=== PATIENT | female | born 1985 | race Caucasian/White ===

== ENCOUNTER → 2019-06-04 07:21 | Outpatient (CLI) | payer BC, SELFPAY ==
--- NOTE | 2019-06-04 07:28 | US_ITS ---
US gallbladder HISTORY: ITS.REASON: abdpminal pain ORDERING PHYSICIAN: Gerson Dewey MD PATIENT AGE: 34 years Comparison: None FINDINGS: PANCREAS: Unremarkable. No obvious mass or abnormal fluid collection. No ductal dilatation LIVER: No focal liver lesions demonstrated. Homogeneous echogenicity. No intrahepatic biliary ductal dilatation evident RIGHT KIDNEY: Unremarkable. Normal size and echogenicity. No hydronephrosis GALLBLADDER: The gallbladder contains a small amount sludge. No shadowing stones, gallbladder wall thickening, pericholecystic fluid, or biliary dilatation. Common bile duct is normal at 3 mm. There are small echogenic foci in the gallbladder could represent tiny nonshadowing stones versus small foci of sludge. IMPRESSION: Small amount of gallbladder sludge and possible tiny nonshadowing stones otherwise negative right upper quadrant ultrasound
== END ==
PROVIDERS: PCP Emergency Medicine; Visit Provider Emergency Medicine
DX: R10.9 Unspecified abdominal pain (principal)
CPT/HCPCS: 76705

== ENCOUNTER → 2019-06-22 10:28 | Outpatient (CLI) | payer BC, SELFPAY ==
--- NOTE | 2019-06-22 10:29 | NM_ITS ---
PROCEDURE: NM HEPATOBILIARY W PHARM CLINICAL INDICATION: abn us Abdominal pain, follow up abnormal ultrasound COMPARISON: GB US gallbladder from 06/04/2019 FINDINGS: Dose: 7.91 mCi technetium Choletec. 1.5 mcg of CCK. No pain reported with CCK. There is homogeneous activity within hepatic parenchyma. Gallbladder activity is present by 10 minutes and small bowel activity by 20 minutes. The ejection fraction is low at 19 percent. IMPRESSION: No evidence of common or cystic duct obstruction. Low gallbladder ejection fraction of 19 percent. No pain reported with CCK infusion Dictated by: Grabiel Rodriguez MD 06/22/2019 19:49 Signed by: <Electronically signed by Grabiel Rodriguez MD in [place]> 06/22/2019 19:49
--- NOTE | 2019-06-22 11:11 | HMH.ITSHM ---
Current Home Medications as stated by this patient Francois Chacko or business center representative. []HYDROCHLOROTHIAZIDE BISOPROLOL AMLODIPINE
== END ==
PROVIDERS: PCP Emergency Medicine; Visit Provider Emergency Medicine
DX: K82.8 Other specified diseases of gallbladder (principal)
CPT/HCPCS: 78227; A9537; J2805

== ENCOUNTER → 2019-08-21 13:40 | Outpatient (CLI) | payer BC, SELFPAY ==
[2019-08-21 14:40] LABS: Basophils % 0.3 % (0.1-2.0); Eosinophils # 0.1 K/mm3 (0.0-0.4); Hematocrit 41.7 % (37.0-47.0); Hemoglobin 13.8 g/dL (12.2-16.2); Lymphocytes # 1.9 K/mm3 (0.7-4.5); Lymphocytes % 16.6 % (10-50); Mean Corpuscular Hemoglobin 32.7 pg (27.0-31.2); Mean Platelet Volume 8.5 fl (7.4-10.4); Monocytes # 0.4 K/mm3 (0.1-1.0); Monocytes % 3.5 % (1.7-9.3); Neutrophils # 9.2 K/mm3 (1.8-7.8); Neutrophils % 78.6 % (37.0-80.0); Platelet Count 244 K/mm3 (142-424); Red Blood Count 4.21 M/mm3 (4.20-5.40); Red Cell Distribution Width 13.9 % (11.5-17.5); White Blood Count 11.7 K/mm3 (4.8-10.8)
[2019-08-21 15:18] LABS: Alanine Aminotransferase 45 U/L (12-78); Albumin Level 3.7 gm/dL (3.4-5.0); Albumin/Globulin Ratio 1.3 (1.1-1.8); Alkaline Phosphatase 61 U/L (46-116); Anion Gap 12.8 mEq/L (5-15); Aspartate Amino Transferase 20 U/L (15-37); Bilirubin,Total 0.5 mg/dL (0.2-1.0); Blood Urea Nitrogen 16 mg/dL (7-18); Calcium 8.9 mg/dL (8.5-10.1); Carbon Dioxide 26 mmol/L (21.0-32.0); Chloride 104 mmol/L (98-107); Creatinine,Serum 0.93 mg/dL (0.55-1.02); Estimated Glomerular Filt Rate 69 ml/min (>60); GFR (African American) 83 ML/MIN (>60); Globulin 2.9 gm/dl (1.3-3.2); Glucose 89 mg/dL (74-106); Potassium 3.8 mmoL/L (3.5-5.1); Sodium 139 mmol/L (136-145); Total Protein,Serum 6.6 gm/dL (6.4-8.2)
[2019-08-21 16:50] LABS: HCG Qualitative, Serum Negative (Negative)
== END ==
PROVIDERS: Visit Provider Surgery
DX: Z01.818 Encounter for other preprocedural examination (principal); K82.9 Disease of gallbladder, unspecified
CPT/HCPCS: 36415; 80053; 84703; 85025

== ENCOUNTER → 2020-02-22 07:58 | Outpatient (POV) | payer BC, SELFPAY | PROVIDERS: PCP Emergency Medicine; Visit Provider Specialist | DX: M79.601 Pain in right arm (principal); R20.0 Anesthesia of skin; R20.2 Paresthesia of skin | CPT/HCPCS: 95886; 95908 ==

== ENCOUNTER → 2020-03-18 09:03 | Outpatient (CLI) | payer BC, SELFPAY ==
--- NOTE | 2020-03-18 09:08 | XR_ITS ---
PROCEDURE: XR WRIST RT MIN 3V CLINICAL INDICATION: Rt CTS COMPARISON: No exams were available for comparison FINDINGS: The distal radius and ulna appear intact. The carpal bones are normal. The pronator quadratus fat pad is well seen and normal finding. IMPRESSION: No acute findings. Dictated by: Dr. Damion Knox MD 03/18/2020 09:[address] Damion Knox MD in [place] 03/18/2020 09:26
== END ==
PROVIDERS: PCP Emergency Medicine; Visit Provider Orthopaedic Surgery
DX: G56.01 Carpal tunnel syndrome, right upper limb (principal)
CPT/HCPCS: 73110

== ENCOUNTER → 2020-03-30 08:18 | Outpatient (CLI) | payer BC, SELFPAY ==
--- NOTE | 2020-03-30 08:36 | XR_ITS ---
PROCEDURE: XR CHEST 2V CLINICAL HISTORY: HTN,TOBACCO USE COMPARISON: No exams were available for comparison FINDINGS: The cardiomediastinal silhouette and pulmonary vascularity are within normal limits. The lungs are clear without infiltrates, suspicious nodules, or pleural effusions. No acute bony abnormalities. IMPRESSION: No acute findings. Dictated by: Grabiel Rodriguez MD 03/30/2020 16:26 Electronically signed by Grabiel Rodriguez MD in [place] 03/30/2020 16:26
[2020-03-30 08:49] LABS: Basophils % 0.6 % (0.1-2.0); Eosinophils # 0.1 K/mm3 (0.0-0.4); Eosinophils % 1.9 % (0.1-12.0); Hemoglobin 13.9 g/dL (12.2-16.2); Lymphocytes % 35.9 % (10-50); Mean Corpuscular HGB Conc 34.8 g/dL (31.8-35.4); Mean Corpuscular Hemoglobin 32.5 pg (27.0-31.2); Mean Corpuscular Volume 93.5 fl (81-99); Mean Platelet Volume 7.8 fl (7.4-10.4); Monocytes # 0.3 K/mm3 (0.1-1.0); Monocytes % 5.7 % (1.7-9.3); Neutrophils # 3.2 K/mm3 (1.8-7.8); Platelet Count 307 K/mm3 (142-424); Red Blood Count 4.28 M/mm3 (4.20-5.40); Red Cell Distribution Width 13.7 % (11.5-17.5); White Blood Count 5.7 K/mm3 (4.8-10.8)
[2020-03-30 09:27] LABS: Coronavirus 19 IgG Antibody Negative (Negative); Coronavirus 19 IgM Antibody Negative (Negative)
[2020-03-30 09:52] LABS: Chloride 104 mmol/L (98-107)
[2020-03-30 09:53] LABS: Potassium 4.3 mmoL/L (3.5-5.1); Sodium 138 mmol/L (136-145)
[2020-03-30 09:55] LABS: Alanine Aminotransferase 23 U/L (12-78); Alkaline Phosphatase 64 U/L (38-126); Aspartate Amino Transferase 23 U/L (14-36); Bilirubin,Total 0.6 mg/dl (0.2-1.3); Blood Urea Nitrogen 12 mg/dl (7-17); Estimated Glomerular Filt Rate 82 ml/min (>60); GFR (African American) 99 ML/MIN (>60)
[2020-03-30 09:56] LABS: Albumin Level 3.9 g/dl (3.5-5.0); Albumin/Globulin Ratio 1.6 (1.1-1.8); Anion Gap 8.3 mEq/L (5-15); Calcium 9.2 mg/dl (8.4-10.2); Carbon Dioxide 30 mmol/L (22.0-30.0); Globulin 2.5 g/dL (1.3-3.2); Glucose 93 mg/dl (74-100); Total Protein,Serum 6.4 g/dl (6.3-8.2)
== END ==
PROVIDERS: Visit Provider Orthopaedic Surgery
DX: Z01.818 Encounter for other preprocedural examination (principal); G56.01 Carpal tunnel syndrome, right upper limb
CPT/HCPCS: 36415; 71046; 80053; 85025; 86328

== ENCOUNTER 2020-03-31 10:15 | Day surgery (SDC) | payer BC, SELFPAY ==
--- NOTE | 2020-03-29 09:30 | SUR.PREOP ---
03/29/2020 @ 0930--PHONE CALL MADE TO PATIENT. PATIENT UNDERSTANDS THAT LAB WORK AND COVID TESTING NEEDS TO BE COMPLETED @ 0830 ON 03/30/2020. PATIENT UNDERSTANDS IF LAB WORK AND COVID-19 TESTS ARE NOT COMPLETED BY 12PM ON THAT DATE, THE SURGERY SCHEDULED WILL BE CANCELLED AND RESCHEDULED FOR ANOTHER TIME.
[2020-03-30 10:57] VITALS: BMI 23.3
[2020-03-31 10:35] VITALS: BP 130/85; PULSE 91; RESP 18; TEMP 36.8; O2SAT 98
[2020-03-31 10:37] LABS: Urine Pregnancy, HCG Qual. Negative (Negative)
[2020-03-31 13:39] VITALS: TEMP 43
[2020-03-31 13:40] VITALS: BP 127/67; PULSE 100; RESP 18; TEMP 36.3; O2SAT 95
[2020-03-31 13:55] VITALS: BP 119/73; PULSE 105; RESP 18; TEMP 36.3; O2SAT 96
[2020-03-31 14:10] VITALS: BP 117/70; PULSE 93; RESP 18; TEMP 36.3; O2SAT 97
--- NOTE | 2020-03-31 15:19 | P.PN_ITS ---
[facility] Anesthesia Checklist - Structural Data Admitted From: Home Planned Operative Procedure/s: r carpal tunnel release Consent for Planned Operative Procedure(s) Verified: Yes - Additional verifications Anesthesia Reactions: No Hx Blood Transfusions: No Blood Transfusion Reaction: No - Airway Assessment C-Spine Mobility Assessed: Yes TMJ Mobility Assessed: Yes Dentition: Good Dentition - Neurological Assessment Level of Consciousness: Awake, Alert, Appropriate - Anesthesia Plan Anesthesia Risk discussed: Yes Anesthesia Plan: Verified ASA Class: II Anesthesia Type: MAC w/Block [facility] History I have reviewed the patient's past medical history: Yes Medical History: Reports:: Anxiety, Depression, Hypertension Denies:: Cancer, Diabetes Mellitus Type 1, Diabetes Mellitus Type 2, Internal Pacemaker, MRSA, Seizures *Have you ever received a pneumonia vaccine?: No *Have you received a flu vaccine this season?: Yes Other Medical History: Denies: Blood Transfusion Reaction Anesthesia experience/problems:: none Laterality Cases: Bilateral: Other Other Surgeries: Yes: Cholecystectomy, , Other. No: Pacemaker Amputation: No Fractures: No - *Social History Educational Level: Attended College Smoking Status: Current every day smoker Tobacco Type: cigarettes # Packs/Day (cigarettes): 1 Alcohol Intake: current Alcohol Intake Frequency:: holidays/special occasions only Substance Use Type: denies use *Occupational Status:: employed Housing: house Household Members: spouse, family *Travel in the last 8 weeks: None - Psychiatric History Pschychiatric History:: Reports:: Anxiety, Depression Family Hx:: No significant family history
--- NOTE | 2020-03-31 15:19 | HMH.OPNOTE ---
Date of procedure: 03/31/20 Pre-op Diagnosis:: R carpal tunnel syndrome Post-op Diagnosis:: R carpal tunnel syndrome Procedure performed:: R carpal tunnel release Surgeon:: Jackie Moyer MD Piano Stringer(s):: HOA Mercado CASINO WORKER:: Saul Sewell Anesthesia: MAC, regional Estimated blood loss (mL): 5 Clinical Note:: 34-year-old [id number] female with right hand pain, numbness and tingling present for several months. No history of injury to or surgery on this hand/wrist. Symptoms are worse in the first 3 fingers of the hand, and she has noticed similar symptoms starting on the left. She has tried bracing without help; the symptoms frequently wake her at night. She smokes 1 pack of cigarettes per day and has history of hypertension, but no other medical issues. No history of diabetes or thyroid issues. EMG-NCS confirmed right carpal tunnel syndrome. Given the EMG findings, failure to improve with bracing, and the extent to which the symptoms are distressing for the patient, I recommend surgical treatment for her carpal tunnel syndrome. I discussed the risks of surgical carpal tunnel release, including but not limited to: bleeding, infection, neurovascular damage, wound dehiscence, persistence of symptoms despite surgery, recurrence of CTS and need for revision surgery in the future. The patient vocalized understanding and provided informed consent for the procedure. Operative findings:: median nerve compression at the R wrist Operative note:: The patient was identified in preoperative holding and the R wrist signed by myself. She was then seen by anesthesia and the decision was made to anesthetize the arm using a supraclavicular nerve block. I reviewed the consent with the patient and all questions were answered. Nerve block was performed in preoperative holding by anesthesia and she was then transported to the OR. The patient was placed supine on the operative table with a hand table attached. 1 g of Ancef was infused intravenously and IV sedation administered. Once the patient was sedated, the R arm was prepped and draped from the elbow distally in the usual sterile fashion using chlorhexidine prep. Timeout was performed, identifying the correct patient, correct procedure, and correct site. The procedure was begun by placing the patient's R hand in a lead hand apparatus to hold her hand in the desired position. The desired surgical incision was drawn using anatomic landmarks specifically at the intersection of Kennedy's cardinal line in the radial border of the ring finger, extending proximally to the wrist flexion crease. The right arm was exsanguinated with an Esmarch and the tourniquet inflated to 250mmHg. The procedure was begun by making an incision over the volar aspect of the wrist in a longitudinal fashion following our previously delineated line. A 15 blade was used to incise the skin only. After the skin was incised, a blunt-tipped tenotomy scissors was used to bluntly spread the subcutaneous tissue. Tissue was spread until the transverse carpal ligament was identified. No neurovascular structures were encountered thus far. The transverse carpal ligament was identified and its proximal margin palpated by a [place] elevator. I was able to slip the tip of the free air under the possible edge of the transverse carpal ligament and into the carpal tunnel. Using a fresh 15 blade, I lightly teased to the fibers of the transverse carpal ligament and release them from proximally to distally using the [place] to protect the underlying carpal tunnel contents. I continue to cut down onto the [place] moving distally, until the entire transverse carpal ligament was released. Then, using the blunt tenotomy scissors, push cut around 5 mm of the distal forearm fascia and palpated the distal end of the transverse carpal ligament, confirming that the entire canal had been released. The median nerve was readily identified underlying the ligament and it
== END 2020-03-31 14:12 | disposition home or self-care (01) ==
PROVIDERS: PCP Emergency Medicine; Visit Provider Orthopaedic Surgery
PROC: (CPT 64721; principal; 2020-03-31 12:00)
DX: G56.01 Carpal tunnel syndrome, right upper limb (principal)
CPT/HCPCS: 64721; 81025; 96374

== ENCOUNTER → 2021-08-28 10:13 | Outpatient (CLI) | payer BC, SELFPAY | PROVIDERS: PCP Emergency Medicine; Visit Provider Nurse Practitioner | DX: Z20.822 Contact with and (suspected) exposure to COVID-19 (principal) | CPT/HCPCS: C9803; U0003; U0005 ==

== ENCOUNTER → 2021-09-06 10:23 | Outpatient (CLI) | payer BC, SELFPAY | PROVIDERS: PCP Emergency Medicine; Visit Provider Nurse Practitioner | DX: Z20.822 Contact with and (suspected) exposure to COVID-19 (principal) | CPT/HCPCS: C9803; U0003; U0005 ==

== ENCOUNTER → 2021-11-12 20:24 | Outpatient (CLI) | payer BC, SELFPAY ==
[2021-11-12 20:38] LABS: Coronavirus 19, PCR Not Detected (NotDetected); Influenza A, PCR Not Detected (NotDetected); Influenza B, PCR Not Detected (NotDetected)
== END ==
PROVIDERS: PCP Emergency Medicine; Visit Provider Emergency Medicine
DX: Z20.822 Contact with and (suspected) exposure to COVID-19 (principal); J06.9 Acute upper respiratory infection, unspecified
CPT/HCPCS: C9803; U0003; U0005

== ENCOUNTER 2022-01-25 09:35 | Emergency (ER) | payer BC, SELFPAY ==
[2022-01-25 11:25] VITALS: BP 159/99; PULSE 65; RESP 21; TEMP 36.6; O2SAT 97; BMI 26.5
[2022-01-25 11:38] LABS: UTC Influenza A Antigen Negative (Negative); UTC Influenza B Antigen Negative (Negative)
--- NOTE | 2022-01-25 11:55 | HMH.EDUTC ---
[facility] [place] Clinical Impression: Viral syndrome Disposition: Home, Self-Care Condition on Discharge: Good Instructions: Nausea and Vomiting-Adult, Diarrhea, DI for Headache Additional Instructions: Drink extra fluids with and between meals. If you have difficulty drinking, try very small amounts of water or suck on ice chips. ? Avoid fruit juices, as these do not replace minerals and can actually increase diarrhea. ? Children and adults can use sports drinks to replenish electrolytes. Younger children and infants should use products formulated for children, like oral rehydration solutions. ? Eat food in small amounts and let your stomach recover. ? Get lots of rest. You may feel tired or weak. ? No greasy or fried foods for the next 24-48 hours BRAT diet Bananas Rice Apples and [place] ? Make sure to drink plenty of liquids ? Return if needed ? Straight to ER if any life threatening symptoms ? Zofran as prescribed ? Follow up with family doctor in the next 48-72 hours if no improvement or any worsening of symptoms Prescriptions: Ondansetron [Zofran 4mg ODT] 4 mg PO TIDP PRN #10 tab PRN Reason: Nausea Transmission Status: Pending to [facility] Referrals: Gerson Dewey MD [Primary Care Provider] - As needed Forms: Work/School Release Time of Disposition: 12:30 Medical Decision Making - Kirby Inquiry Pt receiving controlled substance: No Kirby was queried for this patient: No Vital Signs: 01/25/22 11:25 01/25/22 12:11 Temperature 97.8 F 97.8 F Temperature Source Oral Pulse Rate 65 Pulse Rate [Left Brachial] 65 Respiratory Rate 21 21 Blood Pressure 159/99 H Blood Pressure [Left Arm] 159/99 H Blood Pressure Mean [Left Arm] 119 Blood Pressure Source [Left Arm] Automatic Cuff Blood Pressure Position [Left Arm] Sitting 02 Sat by Pulse Oximetry 97 Oxygen Delivery Method Room Air - Lab Data Lab results reviewed: Yes: I reviewed the patient's lab results. Lab Results 01/25/22 11:28: Influenza Type A Ag Negative, Influenza Type B Ag Negative Orders (Tests/Meds): ED MEDICATIONS Discontinued Medications Generic Name Dose Route Start Last Admin Trade Name Freq PRN Reason Stop Dose Admin Ketorolac Tromethamine 60 mg 01/25/22 11:59 01/25/22 12:09 Ketorolac 60mg/2ml Vial IM 01/25/22 12:00 60 mg ONCE ONE Administration Ondansetron HCl 4 mg 01/25/22 11:59 01/25/22 12:09 Ondansetron 4mg Odt SL 01/25/22 12:00 4 mg ONCE ONE Administration Medical Decision Narrative: Patient states that headache and nausea is much improved BP now 148/98 will give her her prescribed BP medication since nausea is improved [facility] [place] HPI - General Stated complaint: vomiting, diarrhea, abd pains, WEBB Time Seen by Provider: 01/25/22 11:55 Mode of Arrival: Ambulatory Source of Information: Patient Limitations: No Limitations Description of Symptoms (Recalled from Triage Doc. by RN): PATIENT C/O VOMITING, DIARRHEA, STOMACH ACHE, HEADACHE, AND BODY ACHES SINCE YESTERDAY MORNING HEENT Symptoms (Recalled from RN notes): Yes Resp Symptoms (Recalled from RN notes): No Skin Symptoms (Recalled from RN notes): No MS Symptoms (Recalled from RN notes): No Functional Status (Recalled from RN notes): WNL - History of Present Illness Provider Complaint: Patient states that she has been feeling achy all over, n/v/d and headache States that she feels like she may have the flu States that she didnt take her morning medications this morning due to feeling sick so she came in to get checked out and will take them when she gets home - Related Data Previous Rx's Medication Instructions Recorded phentermine 37.5 mg tablet 37.5 mg PO DAILY #30 tab 03/21/21 hydrochlorothiazide 25 mg tablet See Rx Instructions .ROUTE 04/20/21 .COMPLEX #30 tab clonazepam 0.5 mg tablet 0.5 mg PO BID #60 tab 09/21/21 amlodipine 10 mg tablet See Rx Instructions .ROUTE 11/02/21 .COMPLEX #90 tab
[2022-01-25 12:11] VITALS: BP 159/99; PULSE 65; RESP 21; TEMP 36.6; O2SAT 97
[2022-01-25 12:26] VITALS: BP 148/98
== END 2022-01-25 12:36 | disposition home or self-care (01) ==
PROVIDERS: Emergency Provider Nurse Practitioner; PCP Emergency Medicine
DX: B34.9 Viral infection, unspecified (principal); I10 Essential (primary) hypertension; F32.A Depression, unspecified; F41.9 Anxiety disorder, unspecified; F17.210 Nicotine dependence, cigarettes, uncomplicated; Z79.899 Other long term (current) drug therapy; Z88.8 Allergy status to other drugs, medicaments and biological substances
CPT/HCPCS: 87804; 96372; 99213; G0463

== ENCOUNTER 2022-01-25 20:08 | Emergency (ER) | payer BC, SELFPAY ==
[2022-01-25 20:30] VITALS: BP 147/91; PULSE 80; O2SAT 97
[2022-01-25 20:38] VITALS: BP 147/91; PULSE 98; RESP 18; TEMP 36.6; O2SAT 99; BMI 26.4
--- NOTE | 2022-01-25 20:47 | CT_ITS ---
PROCEDURE INFORMATION: Exam: CT Abdomen And Pelvis With Contrast Exam date and time: 01/25/2022 9:32 PM Age: 36 years old Clinical indication: Nausea and vomiting; Abdominal pain TECHNIQUE: Imaging protocol: Computed tomography of the abdomen and pelvis with contrast. Radiation optimization: All CT scans at this facility use at least one of these dose optimization techniques: automated exposure control; mA and/or kV adjustment per patient size (includes targeted exams where dose is matched to clinical indication); or iterative reconstruction. Contrast material: ISOVUE; Contrast volume: 75 ml; Contrast route: IV; COMPARISON: ABDPELW CT abdomen pelvis w con 06/02/2019 11:05 PM FINDINGS: Liver: Hypoattenuating hepatic lesions which are too small to characterize. Gallbladder and bile ducts: Gallbladder is not visualized. Pancreas: Normal enhancement. No ductal dilation. Spleen: No splenomegaly. Adrenal glands: No mass. Kidneys and ureters: No hydronephrosis. Stomach and bowel: No obstruction. No mucosal thickening. Appendix: No evidence of appendicitis. Intraperitoneal space: No free air. No significant fluid collection. Vasculature: No abdominal aortic aneurysm. Lymph nodes: No enlarged lymph nodes. Urinary bladder: No acute abnormality. Reproductive: Ovarian follicles. Bones/joints: Mild scoliosis. No fracture. Soft tissues: No soft tissue swelling. IMPRESSION: No acute findings.
--- NOTE | 2022-01-25 20:49 | HMH.EDNVD ---
ED Disposition Clinical Impression: Gastroenteritis Disposition: Home, Self-Care Condition on Discharge: Good Instructions: DI for Diarrhea and Traveler's Diarrhea -- Adult Additional Instructions: fluids and see pcp for follow up Referrals: Gerson Dewey MD [Primary Care Provider] - - Critical Care Critical Care Time: No Attestation: On 01/25/22, the high probability of a clinically significant, sudden or life threatening deterioration of the following system(s) required my full and direct attention, intervention and personal management. The time I documented below is in addition to time spent performing reported procedures but includes the following listed in this critical care notation. Medical Decision Making - Medical Records Medical records reviewed: Yes: I reviewed the patient's medical records. - Kirby Inquiry Pt receiving controlled substance: No Vital Signs: 01/25/22 20:30 01/25/22 20:38 01/25/22 21:00 Temperature 97.8 F Temperature Source Oral Pulse Rate 80 77 Pulse Rate [Apical] 98 H Respiratory Rate 18 Blood Pressure 147/91 H 146/90 H Blood Pressure [Right Arm] 147/91 H Blood Pressure Mean [Right Arm] 109 Blood Pressure Source [Right Arm] Automatic Cuff Blood Pressure Position [Right Arm] Sitting 02 Sat by Pulse Oximetry 97 99 99 Oxygen Delivery Method Room Air Room Air Room Air 01/25/22 21:30 01/25/22 22:00 01/25/22 22:30 Temperature Temperature Source Pulse Rate 73 69 70 Pulse Rate [Apical] Respiratory Rate Blood Pressure 128/87 109/68 L 103/65 L Blood Pressure [Right Arm] Blood Pressure Mean [Right Arm] Blood Pressure Source [Right Arm] Blood Pressure Position [Right Arm] 02 Sat by Pulse Oximetry 97 97 98 Oxygen Delivery Method Room Air Room Air Room Air - Lab Data Lab results reviewed: Yes: I reviewed the patient's lab results. Lab Results 01/25/22 20:38: Amylase 88, Lipase 117 01/25/22 20:38: WBC 5.7, RBC 4.67, Hgb 15.1, Hct 44.2, MCV 94.6, MCH 32.2 H, MCHC 34.1, RDW 13.8, Plt Count 275, MPV 8.9, Neut % (Auto) 59.9, Lymph % (Auto) 27.9, Jack % (Auto) 7.8, Eos % (Auto) 2.5, Baso % (Auto) 1.8, Neut # (Auto) 3.4, Lymph # (Auto) 1.6, Jack # (Auto) 0.5, Eos # (Auto) 0.2, Baso # (Auto) 0.1 01/25/22 20:38: Sodium 137, Potassium 4.0, Chloride 107, Carbon Dioxide 25, Anion Gap 9.0, BUN 8, Creatinine 0.70, Estimated Creat Clear 129, Estimated GFR 94, Est GFR ( Amer) 114, Glucose 95, Calcium 8.5, Total Bilirubin 0.6, AST 36, ALT 49, Alkaline Phosphatase 73, Total Protein 6.8, Albumin 4.2, Globulin 2.6, Albumin/Globulin Ratio 1.6 01/25/22 20:38: Serum HCG, Qual Negative Result diagrams: 01/25/22 20:38 01/25/22 20:38 Orders (Tests/Meds): ED MEDICATIONS Generic Name Dose Route Start Last Admin Trade Name Freq PRN Reason Stop Dose Admin Lactated Ringer's 500 mls @ 999 mls/hr 01/25/22 21:00 01/25/22 21:26 Lactated Ringer's 1000 Ml Bag IV 01/25/22 21:30 Not Given .Q31M ROSANNA Lactated Ringer's 1,000 mls @ 999 mls/hr 01/25/22 21:30 01/25/22 21:27 Lactated Ringer's 1000 Ml Bag IV 01/25/22 22:30 999 mls/hr .Q1H1M ROSANNA Administration Lactated Ringer's 1,000 mls @ 999 mls/hr 01/25/22 22:15 01/25/22 22:26 Lactated Ringer's 1000 Ml Bag IV 01/25/22 23:15 999 mls/hr .Q1H1M ROSANNA Administration Sodium Chloride 8 ml 01/25/22 20:47 Sodium Chloride 0.9% 10ml Vial IV 02/24/22 20:46 NEEDED PRN dilute pepcid Discontinued Medications Generic Name Dose Route Start Last Admin Trade Name Freq PRN Reason Stop Dose Admin Famotidine 20 mg 01/25/22 20:47 01/25/22 20:56 Famotidine 20mg/2ml Vial IV 01/25/22 20:48 20 mg ONCE ONE Administration Iopamidol 75 ml 01/25/22 21:38 01/25/22 21:39 Iopamidol-370 (76%);100ml Bottle IV 01/25/22 21:39 75 ml ONCE ONE Administration Ketorolac Tromethamine 30 mg 01/25/22 20:50 01/25/22 20:56 Ketorolac 30mg/Ml Vial IV 01/25/22 20
[2022-01-25 20:56] LABS: Basophils # 0.1 K/mm3 (0-0.2); Basophils % 1.8 % (0.1-2.0); Eosinophils # 0.2 K/mm3 (0.0-0.4); Eosinophils % 2.5 % (0.1-12.0); Hematocrit 44.2 % (37.0-47.0); Hemoglobin 15.1 g/dL (12.2-16.2); Lymphocytes # 1.6 K/mm3 (0.7-4.5); Lymphocytes % 27.9 % (10-50); Mean Corpuscular HGB Conc 34.1 g/dL (31.8-35.4); Mean Corpuscular Hemoglobin 32.2 pg (27.0-31.2); Mean Corpuscular Volume 94.6 fl (81-99); Mean Platelet Volume 8.9 fl (7.4-10.4); Monocytes # 0.5 K/mm3 (0.1-1.0); Monocytes % 7.8 % (1.7-9.3); Neutrophils # 3.4 K/mm3 (1.8-7.8); Neutrophils % 59.9 % (37.0-80.0); Platelet Count 275 K/mm3 (142-424); Red Blood Count 4.67 M/mm3 (4.20-5.40); Red Cell Distribution Width 13.8 % (11.5-17.5); White Blood Count 5.7 K/mm3 (4.8-10.8)
[2022-01-25 20:59] LABS: Chloride 107 mmol/L (98-107); Sodium 137 mmol/L (136-145)
[2022-01-25 21:00] VITALS: BP 146/90; PULSE 77; O2SAT 99
[2022-01-25 21:01] LABS: Amylase 88 U/L (30-110); Lipase 117 U/L (23-300)
[2022-01-25 21:02] LABS: Alanine Aminotransferase 49 U/L (12-78); Albumin Level 4.2 g/dl (3.5-5.0); Albumin/Globulin Ratio 1.6 (1.1-1.8); Alkaline Phosphatase 73 U/L (38-126); Aspartate Amino Transferase 36 U/L (14-36); Bilirubin,Total 0.6 mg/dl (0.2-1.3); Blood Urea Nitrogen 8 mg/dl (7-17); Calcium 8.5 mg/dl (8.4-10.2); Carbon Dioxide 25 mmol/L (22.0-30.0); Creatinine Clearance Estimated 129 mL/min (50-200); Estimated Glomerular Filt Rate 94 ml/min (>60); GFR (African American) 114 ML/MIN (>60); Globulin 2.6 g/dL (1.3-3.2); Glucose 95 mg/dl (74-100); Total Protein,Serum 6.8 g/dl (6.3-8.2)
[2022-01-25 21:20] LABS: HCG Qualitative, Serum Negative (Negative)
[2022-01-25 21:30] VITALS: BP 128/87; PULSE 73; O2SAT 97
[2022-01-25 22:00] VITALS: BP 109/68; PULSE 69; O2SAT 97
[2022-01-25 22:30] VITALS: BP 103/65; PULSE 70; O2SAT 98
[2022-01-26 00:15] VITALS: BP 115/62; PULSE 72; RESP 18; TEMP 36.7; O2SAT 97
== END 2022-01-26 00:25 | disposition home or self-care (01) ==
PROVIDERS: Emergency Provider Emergency Medicine; PCP Emergency Medicine
DX: R19.7 Diarrhea, unspecified (principal); R11.2 Nausea with vomiting, unspecified; I10 Essential (primary) hypertension; F32.A Depression, unspecified; F41.9 Anxiety disorder, unspecified; F17.210 Nicotine dependence, cigarettes, uncomplicated; Z88.8 Allergy status to other drugs, medicaments and biological substances
CPT/HCPCS: 74177; 80053; 82150; 83690; 84703; 85025; 96361; 96365; 96366; 96374; 96375; 99284; J2405; Q9967

== ENCOUNTER 2023-12-18 10:43 | Emergency (ER) | payer BC, SELFPAY ==
[2023-12-18 11:00] VITALS: BP 134/86; PULSE 101; RESP 17; TEMP 37.7; O2SAT 100; BMI 26.1
--- NOTE | 2023-12-18 11:17 | ED_ITS ---
Discharge Plan Disposition Patient Disposition: Home, Self-Care Condition: Good Prescriptions Prescriptions: New benzonatate [benzonatate] 100 mg capsule 100 mg PO TIDP PRN (Reason: Cough) Qty: 30 0RF ibuprofen [ibuprofen] 600 mg tablet 600 mg PO Q6HP PRN (Reason: Mild Pain) Qty: 30 0RF ondansetron 4 mg Tablet,Disintegrating 4 mg PO Q8H PRN (Reason: Nausea) Qty: 12 0RF No Action phentermine [Adipex-P] 37.5 mg tablet 37.5 mg PO DAILY Qty: 30 0RF Rx Instructions: must administer 30 minutes before or 1-2 hours after breakfast hydrochlorothiazide 25 mg tablet See Rx Instructions .ROUTE .COMPLEX Qty: 30 0RF Dose Instruction: TAKE ONE TABLET BY MOUTH ONCE A DAY FOR HIGH BLOOD PRESSURE Rx Instructions: TAKE ONE TABLET BY MOUTH ONCE A DAY FOR HIGH BLOOD PRESSURE clonazepam [Klonopin] 0.5 mg tablet 0.5 mg PO BID Qty: 60 2RF vilazodone 20 mg tablet See Rx Instructions .ROUTE .COMPLEX Qty: 20 0RF Dose Instruction: TAKE ONE TABLET BY MOUTH ONCE A DAY WITH FOOD Rx Instructions: TAKE ONE TABLET BY MOUTH ONCE A DAY WITH FOOD amlodipine 10 mg tablet See Rx Instructions .ROUTE .COMPLEX Qty: 21 0RF Dose Instruction: TAKE ONE TABLET BY MOUTH ONCE A DAY FOR BLOOD PRESSURE Rx Instructions: TAKE ONE TABLET BY MOUTH ONCE A DAY FOR BLOOD PRESSURE Referrals Follow up/Referrals: Shane Ovalle DO [Primary Care Provider] - See instructions Activity Restrictions/Add. Instructions Additional Instructions/Restrictions: Drink plenty of fluids. Take tylenol or ibuprofen for pain or fever. Take the medications as directed. Follow up with your regular doctor. GO TO THE ER FOR ANY WORSENING SYMPTOMS Clinical Impressions Clinical Impression: Acute viral syndrome Instructions Patient Instructions: DI for Viral Syndrome, Ondansetron, Ibuprofen, Benzonatate Discharge ED Provider: Primo Dupont [facility] General Stated complaint: sore throat fever Time Seen by Provider: 12/18/23 11:17 History of Present Illness Provider Complaint: She states that for the past 2 days she has had low grade fever, chills, body aches, malaise, scratchy sore throat, dry nonproductive cough, and nausea. She has been exposed to influenza. Related Data Previous Rx's Medication Instructions Recorded phentermine 37.5 mg tablet 37.5 mg PO DAILY #30 tabs 03/21/21 (Adipex-P) hydrochlorothiazide 25 mg tablet See Rx Instructions .Route 04/20/21 .COMPLEX #30 tabs clonazepam 0.5 mg tablet (Klonopin) 0.5 mg PO BID #60 tabs 09/21/21 amlodipine 10 mg tablet See Rx Instructions .Route 08/23/23 .COMPLEX #21 tabs vilazodone 20 mg tablet See Rx Instructions .Route 08/23/23 .COMPLEX #20 tabs benzonatate 100 mg capsule 100 mg PO TIDP PRN Cough #30 caps 12/18/23 ibuprofen 600 mg tablet 600 mg PO Q6HP PRN Mild Pain #30 12/18/23 tabs ondansetron 4 mg disintegrating 4 mg PO Q8H PRN Nausea #12 tabs 12/18/23 tablet Allergies Allergy/AdvReac Type Severity Reaction Status Date / Time lisinopril AdvReac Mild Cough Verified 12/18/23 11:21 [facility] Disclaimer: The information contained in this section may have been updated after the patient was seen, as this information can be updated by other users. Social History Smoking Status: Current every day smoker tobacco type: cigarettes packs per day: 1 second hand exposure: Yes alcohol intake: never substance use type: denies use current occupational status: other Travel in the last 8 weeks: None household members: spouse and family housing: house current occupation: [employer] Employee current occupational exposures/hazards: No caffeine: Yes ROS Obtained: Yes All systems reviewed & no additional complaints except as documented Constitutional Constitutional: Reports chills and Reports fever(s) Eyes Eyes: Denies eye discharge ENT Ears, Nose, Mouth, and Throat: Reports as per HPI Cardiovascular Cardiovascular: Denies chest pain Respiratory Respiratory: Denies chest congestion and Reports cough Gastrointestinal Gastrointestingal: Reports nausea; Denies abdominal pain, constipation, cramping, diarrhea or vomiting Musculoskeletal Musculoskeletal: Denies arthralgias Integumentary/Breasts Skin/Breast: Denies rash Neurologic Neurologic: Denies paresthesias Physical Exam General General appearance: alert and in no apparent distress Head Head exam: atraumatic, normocephalic and normal inspection Eye Eye exam: Present normal appearance, PERRL and EOMI ENT ENT exam: Present normal exam, normal oropharynx, mucous membranes moist, TM's normal bilaterally and normal external ear exam Neck Neck exam: Present normal inspection, full ROM and trachea midline; Absent meningismus or lymphadenopathy Chest Chest inspection: Present normal inspection and symmetric chest wall rise; Absent tenderness Respiratory Respiratory exam: Present normal lung sounds bilaterally; Absent respiratory distress Cardiovascular Cardiovascular exam: Present regular rate and normal rhythm; Absent JVD Abdominal Exam Abdominal exam: Present soft and normal bowel sounds; Absent distention, tenderness or guarding Extremities Exam Extremities exam: Present normal inspection, full ROM and normal capillary refill; Absent calf tenderness Back Exam Back exam: Present normal inspection; Absent tenderness Neurological Exam Neurological exam: Present alert and oriented X3 Psychiatric Psychiatric exam: Present normal affect and normal mood Skin Skin exam: Present warm, dry, intact and normal color Lymphatic Lymphatic Findings: no adenopathy Medical Decision Making Medical Records Medical records reviewed: No I reviewed the patient's medical records. Kirby Inquiry Pt receiving controlled substance: No Lab Data Lab results reviewed: Yes I reviewed the patient's lab results.
[2023-12-18 11:28] LABS: UTC Influenza A Antigen Negative (Negative); UTC Influenza B Antigen Negative (Negative)
[2023-12-18 11:54] VITALS: BP 134/86; PULSE 17; RESP 17; TEMP 37.7; O2SAT 100
== END 2023-12-18 11:54 | disposition home or self-care (01) ==
PROVIDERS: Emergency Provider Nurse Practitioner Family; PCP Internal Medicine
DX: R05.9 Cough, unspecified (principal); R11.0 Nausea; R50.9 Fever, unspecified; R07.0 Pain in throat; B34.9 Viral infection, unspecified; F17.210 Nicotine dependence, cigarettes, uncomplicated
CPT/HCPCS: 87804; 99212; 99214; G0463

== ENCOUNTER 2024-04-13 10:19 | Outpatient (CLI) | payer BC, SELFPAY ==
[2024-04-13 18:40] LABS: Basophils # 0.1 K/mm3 (0-0.2); Eosinophils # 0.1 K/mm3 (0.0-0.4); Eosinophils % 1.9 % (0.1-12.0); Hematocrit 43.6 % (37.0-47.0); Hemoglobin 14.2 g/dL (12.2-16.2); Lymphocytes # 1.5 K/mm3 (0.7-4.5); Lymphocytes % 33.5 % (10-50); Mean Corpuscular HGB Conc 32.6 g/dL (31.8-35.4); Mean Corpuscular Hemoglobin 31.3 pg (27.0-31.2); Mean Platelet Volume 10.2 fl (7.4-10.4); Monocytes # 0.3 K/mm3 (0.1-1.0); Monocytes % 6.6 % (1.7-9.3); Neutrophils # 2.6 K/mm3 (1.8-7.8); Platelet Count 260 K/mm3 (142-424); Red Blood Count 4.54 M/mm3 (4.20-5.40); Red Cell Distribution Width 14.6 % (11.5-17.5); White Blood Count 4.6 K/mm3 (4.8-10.8)
[2024-04-13 19:15] LABS: Alanine Aminotransferase 39 U/L (12-78); Albumin Level 4.3 g/dl (3.5-5.0); Albumin/Globulin Ratio 1.8 (1.1-1.8); Alkaline Phosphatase 57 U/L (38-126); Anion Gap 16.6 mEq/L (5-15); Aspartate Amino Transferase 29 U/L (14-36); Bilirubin,Total 0.6 mg/dl (0.2-1.3); Blood Urea Nitrogen 7 mg/dl (7-17); Calcium 9.5 mg/dl (8.4-10.2); Carbon Dioxide 22 mmol/L (22.0-30.0); Chloride 105 mmol/L (98-107); Chol/HDL Ratio 4.3 (1-3.5); Cholesterol 180 mg/dl (140-200); Estimated Glomerular Filt Rate 80 ml/min (>60); GFR (African American) 97 ML/MIN (>60); Globulin 2.4 g/dL (1.3-3.2); Glucose 89 mg/dl (74-100); HDL Cholesterol 42 mg/dl (40-60); Potassium 4.6 mmoL/L (3.5-5.1); Sodium 139 mmol/L (136-145); Total Protein,Serum 6.7 g/dl (6.3-8.2); Triglycerides 149 mg/dl (30-150); VLDL Cholesterol 30 mg/dL (0-40)
[2024-04-13 19:27] LABS: Direct LDL Cholesterol 102.18 mg/dL (100-129)
[2024-04-13 19:39] LABS: Free Thyroxine Index 1.7 ug/dL (5.93-13.13); T4 (Thyroxine) 4.8 ug/dl (5.53-11.0); Triiodothryronine (T3) Uptake 35 % (23.5-40.5)
[2024-04-13 19:40] LABS: 25-OH Vitamin D, Total 29.8 ng/mL (30-100)
[2024-04-13 19:53] LABS: Thyroid Stimulating Hormone 1.51 uIU/mL (0.465-4.68)
[2024-04-14 11:47] LABS: HIV (1&2) Antibody Rapid NON REACTIVE
[2024-04-15 07:06] LABS: HBsAg Screen Negative (Negative); HCV Ab Non Reactive (Non Reactive); Hep A Ab, IGM Negative (Negative); Hep B Core Ab, IgM Negative (Negative)
[2024-04-15 09:42] LABS: Thyroid Peroxidase Antibodies 9 IU/mL (0-34)
[2024-04-17 07:19] LABS: Thyroid Stimulating Immunoglob <0.10 IU/L (0.00-0.55)
== END 2024-04-13 23:59 | disposition home or self-care (01) ==
LOC: LAB.DROPOF 04-14 10:19
PROVIDERS: PCP Physician Assistant; Visit Provider Physician Assistant
DX: R53.83 Other fatigue (principal); L65.9 Nonscarring hair loss, unspecified; I10 Essential (primary) hypertension; F17.210 Nicotine dependence, cigarettes, uncomplicated; Z68.25 Body mass index [BMI] 25.0-25.9, adult
CPT/HCPCS: 80050; 80053; 80061; 80074; 82306; 84436; 84443; 84445; 84479; 85025; 86376

== ENCOUNTER 2024-09-05 12:16 | Emergency (ER) | payer BC, SELFPAY ==
[2024-09-05 13:35] VITALS: BP 146/90; PULSE 80; RESP 18; TEMP 36.8; O2SAT 98; BMI 28.2
--- NOTE | 2024-09-05 14:42 | ED_ITS ---
Discharge Plan Disposition Patient Disposition: Home, Self-Care Condition: Good Prescriptions Prescriptions: New amoxicillin 875 mg tablet 875 mg PO BID 10 Days Qty: 20 0RF No Action Wegovy 0.25 mg/0.5 mL pen injector 0.25 mg SQ WEEKLY Qty: 2 0RF Rx Instructions: administer weeks 1 through 4 of therapy levothyroxine 25 mcg tablet See Rx Instructions .ROUTE .COMPLEX Qty: 30 0RF Dose Instruction: TAKE ONE TABLET BY MOUTH ONCE A DAY Rx Instructions: TAKE ONE TABLET BY MOUTH ONCE A DAY vilazodone 20 mg tablet See Rx Instructions .ROUTE .COMPLEX Qty: 30 0RF Dose Instruction: TAKE ONE TABLET BY MOUTH ONCE A DAY WITH FOOD Rx Instructions: TAKE ONE TABLET BY MOUTH ONCE A DAY WITH FOOD Referrals Follow up/Referrals: Nubia Toribio PA [Primary Care Provider] - See instructions Activity Restrictions/Add. Instructions Additional Instructions/Restrictions: Take medication as prescribed. Increase fluids and rest. Follow up with PCP if symptoms persist or worsen. Clinical Impressions Clinical Impression: Acute lower respiratory infection Instructions Patient Instructions: Acute Bronchitis Print Language Print Language: Peruvian Discharge ED Provider: Patricia Proctor [facility] General Stated complaint: cough, chest sarah. Mode of Arrival: Ambulatory Source of Information: Patient Time Seen by Provider: 09/05/24 14:36 Description of Symptoms (Recalled from Triage Doc. by RN): CONSTANT COUGHING WITH YELLOW/GREEN DRAINAGE, CHEST CONGESTION. COUGHING WORSE AT NIGHT, UNABLE TO SLEEP HEENT Symptoms (Recalled from RN notes): No Resp Symptoms (Recalled from RN notes): Yes Skin Symptoms (Recalled from RN notes): No MS Symptoms (Recalled from RN notes): No Functional Status (Recalled from RN notes): WNL History of Present Illness Provider Complaint: CONSTANT COUGHING WITH YELLOW/GREEN DRAINAGE, CHEST CONGESTION. COUGHING WORSE AT NIGHT, UNABLE TO SLEEP Related Data Previous Rx's ?Medication ?Instructions ?Recorded semaglutide (weight loss) 0.25 0.25 mg (0.5 mL) SQ WEEKLY #2 mL 07/09/24 mg/0.5 mL subcutaneous pen injector (Wegovy) levothyroxine 25 mcg tablet See Rx Instructions .Route 07/27/24 .COMPLEX #30 tabs vilazodone 20 mg tablet See Rx Instructions .Route 07/27/24 .COMPLEX #30 tabs amoxicillin 875 mg tablet 875 mg PO BID 10 days #20 tabs 09/05/24 Allergies Allergy/AdvReac Type Severity Reaction Status Date / Time lisinopril AdvReac Mild Cough Verified 07/09/24 11:33 Worker's Comp Is this a Worker's Comp case?: No [facility] Disclaimer: The information contained in this section may have been updated after the patient was seen, as this information can be updated by other users. Social History Smoking Status: Current every day smoker tobacco type: cigarettes packs per day: 1 second hand exposure: Yes alcohol intake: never substance use type: denies use current occupational status: other Travel in the last 8 weeks: None household members: spouse and family housing: house current occupation: [employer] Employee current occupational exposures/hazards: No caffeine: Yes ROS Obtained: Yes All systems reviewed & no additional complaints except as documented Constitutional Constitutional: Reports system reviewed and no additional complaints, except as documented and Reports malaise Eyes Eyes: Reports system reviewed and no additional complaints, except as documented ENT Ears, Nose, Mouth, and Throat: Reports system reviewed and no additional complaints, except as documented Cardiovascular Cardiovascular: Reports system reviewed and no additional complaints, except as documented Respiratory Respiratory: Reports system reviewed and no additional complaints, except as documented, Reports change in phlegm color, Reports chest congestion and Reports cough with sputum production Gastrointestinal Gastrointestingal: Reports system reviewed and no additional complaints, except as documented Genitourinary Female Genitourinary: Reports system reviewed and no additional complaints, except as documented Musculoskeletal Musculoskeletal: Reports system reviewed and no additional complaints, except as documented Integumentary/Breasts Skin/Breast: Reports system reviewed and no additional complaints, except as documented Neurologic Neurologic: Reports system reviewed and no additional complaints, except as documented Endocrine Endocrine: Reports system reviewed and no additional complaints, except as documented Hematologic/Lymphatic Henatologic/Lymphatic: Reports system reviewed and no additional complaints, except as documented Allergic/Immunologic Allergic/Immunologic: Reports system reviewed and no additional complaints, except as documented Physical Exam General General appearance: alert and in no apparent distress Head Head exam: atraumatic and normocephalic Eye Eye exam: Present normal appearance ENT ENT exam: Present normal exam, normal oropharynx and mucous membranes moist Neck Neck exam: Present normal inspection Chest Chest inspection: Present normal inspection and symmetric chest wall rise Respiratory Respiratory exam: Present other (course sounds throughout) Cardiovascular Cardiovascular exam: Present regular rate and normal rhythm Abdominal Exam Abdominal exam: Present soft Extremities Exam Extremities exam: Present normal inspection Back Exam Back exam: Present normal inspection Neurological Exam Neurological exam: Present alert and oriented X3 Psychiatric Psychiatric exam: Present normal affect and normal mood Skin Skin exam: Present warm, dry and intact Lymphatic Lymphatic Findings: no adenopathy Medical Decision Making Medical Records Screening: Per USPSTF and CDC recommendations, given the prevalence of disease in our region, it is our hospital?s policy to screen for HIV and viral Hepatitis for all patients aged 18 and over and those with ongoing risk factors. Kirby Inquiry Pt receiving controlled substance: No Kirby was queried for this patient: No Vital Signs: 09/05/24 13:35 Temperature 98.2 F Temperature Source Oral Pulse Rate [Left Radial] 80 Respiratory Rate 18 Blood Pressure [Left Arm] 146/90 H Blood Pressure Mean [Left Arm] 108 02 Sat by Pulse Oximetry 98
[2024-09-05 14:53] VITALS: BP 146/90; PULSE 80; RESP 18; TEMP 36.8
== END 2024-09-05 14:56 | disposition home or self-care (01) ==
PROVIDERS: Emergency Provider Nurse Practitioner Family; PCP Physician Assistant
DX: J06.9 Acute upper respiratory infection, unspecified (principal)
CPT/HCPCS: 99213; G0381

== ENCOUNTER 2024-09-21 14:17 | Outpatient (CLI) | payer BC, SELFPAY ==
--- NOTE | 2024-09-21 14:21 | MM_ITS ---
PROCEDURE INFORMATION: Exam: MG Bilateral Screening 3D Mammography Exam date and time: 09/21/2024 2:18 PM Age: 39 years old Clinical indication: Screening examination TECHNIQUE: Imaging protocol: Bilateral Screening tomosynthesis and 2D mammography including computer-aided detection (CAD) when performed. COMPARISON: No relevant prior studies available. FINDINGS: MAMMOGRAPHY: Breast composition: The breasts are heterogeneously dense, which may obscure small masses. Mass: 1.5 cm mass subareolar left breast. Question 0.6 cm mass right breast roughly 3 o'clock 4 cm from the nipple middle depth. Architectural distortion: None. Calcifications: No suspicious calcifications. Asymmetric density: None. Skin thickening: None. Axillary adenopathy: None. IMPRESSION: 1. Left breast mass. Recommend further evaluation with left breast ultrasound. 2. Questioned right breast mass.Recommend right breast diagnostic mammogram including spot compression views of the right breast in the CC and MLO projections, a full 90 degree lateral view, and right breast ultrasound for further evaluation. ASSESSMENT: BI-RADS Category 0: Incomplete- Need Additional Imaging Evaluation.
== END 2024-09-21 23:59 | disposition home or self-care (01) ==
LOC: RAD 14:18
PROVIDERS: PCP Physician Assistant; Visit Provider Physician Assistant
DX: Z12.31 Encounter for screening mammogram for malignant neoplasm of breast (principal)
CPT/HCPCS: 77063; 77067

== ENCOUNTER 2024-10-16 12:47 | Outpatient (CLI) | payer BC, SELFPAY ==
--- NOTE | 2024-10-16 12:54 | MM_ITS ---
PROCEDURE INFORMATION: Exam: US Right Breast, Complete US Left Breast, Complete MG Right Diagnostic Breast Tomosynthesis Exam date and time: 10/16/2024 12:50 PM Age: 39 years old Clinical indication: Patient recalled on the basis of a screening mammogram for further evaluation; bilateral breast masses TECHNIQUE: Imaging protocol: Complete ultrasound of all four quadrants of the right breast and the retroareolar regions, including ultrasound of the axilla when performed. Complete ultrasound of all four quadrants of the left breast and the retroareolar regions, including ultrasound of the axilla when performed. Right Diagnostic tomosynthesis and 2D mammography including computer-aided detection (CAD) when performed. Unilateral or bilateral exam. COMPARISON: MG MM DIG SCREENING MAMM BI W/CAD 09/21/2024 2:18 PM FINDINGS: MAMMOGRAPHY: Breast composition: The breast is heterogeneouly dense, which may obscure small masses (based on the most recent screening mammogram report). Breast mammogram findings: Digital diagnostic spot compression views of the right breast and 90 degree lateral view of the right breast demonstrate normal overlapping fibroglandular structures without persistent mass or asymmetry identified. ULTRASOUND: Breast ultrasound findings: Sonographic images of the right breast including the retroareolar region, all 4 quadrants and the axilla do not demonstrate any solid masses. Incidental 9 o'clock axis 0.5 cm cyst 6 cm from the nipple. No architectural distortion or acoustical shadowing. No skin thickening or axillary adenopathy. Sonographic images of the left breast including the retroareolar region, all 4 quadrants and the axilla demonstrates a fairly well-circumscribed hypoechoic solid mass in the left retroareolar region most closely corresponds to the mass on mammography. It measures 1.6 x 0.9 x 1.2 cm. There is heterogeneous internal architecture. Sonographic images of left 2 o'clock axis 5 cm from nipple demonstrates a smoothly marginated ovoid hypoechoic solid mass measuring 0.8 x 0.3 x 0.6 cm, not well seen on mammography. The finding is probably benign in etiology.. No architectural distortion or acoustical shadowing. No skin thickening or axillary adenopathy. IMPRESSION: 1. Indeterminate left retroareolar mass. Ultrasound-guided core biopsy is recommended for further evaluation. If the biopsy is benign, a six-month follow-up targeted left upper outer quadrant ultrasound is recommended to ensure stability of the smaller incidentally noted mass on sonography. 2. No focal suspicious findings in the right breast. ASSESSMENT: BI-RADS Category 4: Suspicious.
== END 2024-10-16 23:59 | disposition home or self-care (01) ==
LOC: RAD 12:48
PROVIDERS: PCP Physician Assistant; Visit Provider Physician Assistant
DX: R92.8 Other abnormal and inconclusive findings on diagnostic imaging of breast (principal)
CPT/HCPCS: 76641; 77061; 77065; G0279

== ENCOUNTER 2024-11-02 09:20 | Outpatient (CLI) | payer BC, SELFPAY ==
--- NOTE | 2024-11-02 | MM_ITS ---
FINAL REPORT CLINICAL HISTORY: s/p bx, lt breast clip placement FINDINGS: MAMMOGRAM LEFT 2D TECHNIQUE: Standard digital 2D views COMPARISON: None DENSITY: There are scattered areas of fibroglandular density FINDINGS: Post biopsy marker clip is noted in satisfactory position. Postbiopsy changes are noted. Mass in the retroareolar left breast is seen containing the biopsy marker clip. IMPRESSION: Biopsy marker clip in good position ASSESSMENT: Post procedure mammogram for marker placement RECOMMENDATION: Based on pathology findings of fibroadenoma 6-month sonographic follow-up was recommended as part of normal post benign biopsy surveillance. Authenticated and [facility]N
--- NOTE | 2024-11-02 09:27 | US_ITS ---
FINAL REPORT CLINICAL HISTORY: LUMP IN LEFT BREAST - DR. ANGEL JUSTIN - RETROAREOLAR FINDINGS: ULTRASOUND-GUIDED LEFT BREAST CORE BIOPSY HISTORY: Left breast mass TECHNIQUE: The left breast was prepped in a routine sterile fashion and locally anesthetized with 1% lidocaine. Using sonographic guidance a 15 gauge needle was directed toward the lesion of interest. The needle was positioned within the outer periphery of the lesion. A total of 4 passes were made with a 16 gauge core biopsy needle. A biopsy marker clip was deployed in satisfactory position. A post biopsy mammogram was performed and dictated separately. Limited postbiopsy images showed no evidence of significant hemorrhage. Procedure was well tolerated. IMPRESSION: 1. Technically successful image guided biopsy of left breast lesion as above. Histopathology results reveal fibroadenoma. Pathology is concordant with mammographic findings. Recommend 6-month sonographic follow-up as routine post benign biopsy surveillance Authenticated and ERN
== END 2024-11-02 23:59 | disposition home or self-care (01) ==
LOC: RAD 09:21
PROVIDERS: PCP Physician Assistant; Visit Provider Physician Assistant
DX: N63.42 Unspecified lump in left breast, subareolar (principal)
CPT/HCPCS: 19083; 77065

== ENCOUNTER 2024-12-25 14:51 | Outpatient (CLI) | payer BC, SELFPAY ==
[2024-12-25] MEDS: ALBUTEROL 0.083% 2.5 MG/3 ML NEB IH (15:29)
--- NOTE | 2024-12-25 15:29 | PC.NURSE ---
PFT completed on pt without incident. Albuterol 0.083% given via [facility]N, per written protocol, Pt tolerated tx well.
--- NOTE | 2024-12-25 15:55 | XR_ITS ---
FINAL REPORT CLINICAL HISTORY: CHRONIC COUGH FINDINGS: PA and lateral views of the chest are obtained. There is no prior exam for comparison. The cardiac and mediastinal silhouettes are within normal limits. The lungs are clear. There is no pleural effusion, pneumothorax, or acute osseous abnormality. IMPRESSION: No radiographic evidence of acute cardiac or pulmonary disease. Reviewed, Interpreted and Dictated by Yane Pal MD Transcribed by Ruth Pettit Authenticated and [facility]
== END 2024-12-25 23:59 | disposition home or self-care (01) ==
PROVIDERS: PCP Physician Assistant; Visit Provider Physician Assistant
DX: R05.3 Chronic cough (principal)
CPT/HCPCS: 71046; 94060; 94726; 94729; J7613

== ENCOUNTER 2025-05-06 07:38 | Outpatient (CLI) | payer BC, SELFPAY ==
--- NOTE | 2025-05-06 07:41 | US_ITS ---
PROCEDURE INFORMATION: Exam: US Left Breast, Complete Exam date and time: 05/06/2025 7:36 AM Age: 39 years old Clinical indication: Abnormal findings on imaging; Left; Additional info: 6 month f/u lump lt breast TECHNIQUE: Imaging protocol: Complete ultrasound of all four quadrants of the left breast and the retroareolar regions, including ultrasound of the axilla when performed. COMPARISON: US BIOPSY BREAST LT 11/02/2024 10:15 AM FINDINGS: ULTRASOUND: Breast ultrasound findings: A hypoechoic circumscribed 0.7 x 0.5 x 0.7 cm mass is seen in the left breast 2 o'clock axis, 5 cm from the nipple, formerly 0.8 x 0.3 x 0.6 cm, believed to be stable allowing for slight differences in measuring technique. No shadowing or distortion. A previously biopsied hypoechoic round circumscribed mass is seen in the left retroareolar breast, measuring 1.4 x 1.1 x 1.4 cm, formerly 1.6 x 1.0 x 1.2 cm. No shadowing or distortion. There is no evidence of axillary adenopathy. IMPRESSION: Breast masses in the left breast, 1 of which has been biopsied. A six-month follow-up left breast ultrasound is recommended to establish stability in size over time. ASSESSMENT: BI-RADS Category 3: Probably benign.
--- OUTSIDE RECORDS SUMMARY | 2025-05-06 07:41 | XMS_ITS | Data Portability ---
Author Organization [facility] Address [address] [place] [address] Assessment No assessment recorded. Plan of Treatment Reminders Order Date Submit Date Provider Last Modified By Organization Details Last Modified Time Details Appointments None recorded. Lab CMP, serum or plasma 2023 024 [facility] ([place]), [address] [place], [address], 4 11:09:39 CBC w/ auto diff 2023 024 [facility] ([place] [address] [place], [address], 4 11:09:38 lipid panel, serum 2023 024 [facility] [address] [place], [address], 4 11:09:40 vitamin D, 25-hydroxy, total, serum 2023 024 [facility] ([place]), [address] [place], [address], 4 11:09:41 TSH, ultra-sensi tive, serum 2023 024 [facility] ([place]), [address] [place], [address], 4 11:09:41 Referral None recorded. Procedures None recorded. Surgeries None recorded. Imaging electrocard iogram 2024 025 [email or web address] Not available 09:08:17 home sleep study 2024 025 [facility], [address], [address], [place], [address], 5 09:56:43 MAMMO, screening, bilateral 2023 024 [facility] ([facility]), [address], [place], [address], 4 12:11:10 Medication Orders levofloxaci n 500 mg tablet 2024 025 [facility], [facility] [address], [place], [id number], 5 10:37:33 prednisone 20 mg tablet 2024 025 [facility], [facility] [address], [place], [id number], 5 10:37:34 levofloxaci n 500 mg tablet 2024 025 [facility], [facility] [address], [place], [id number], 5 08:43:25 Zithromax Z-Kris 250 mg tablet 2024 025 [facility], [address] [facility] [address], [place], [id number], 5 08:42:42 prednisone 20 mg tablet 2024 025 [facility], [facility] [address], [place], [id number], 5 08:42:53 Sudafed 12 Hour 120 mg tablet,exte nded release 2024 025 [facility], [address] [place] [address] [place], [id number], 5 08:43:11 Vraylar 1.5 mg capsule 2024 025 [facility], [address] [place] [address] [place], [id number], 5 17:19:14 doxycycline hyclate 100 mg tablet 2023 025 [facility], [address] [place] [address] [place], [id number], 5 17:00:44 prednisone 20 mg tablet [email or web address] [place] [address], [address] [place] [address] [place], [id number], 5 08:35:03 promethazin e-DM 6.25 mg-15 mg/5 mL oral syrup 2023 025 [facility], [address] [place] [address] [place], [place], [id number], 5 17:01:41 ceftriaxone 1 gram solution for injection 2023 024 Not available 5 16:59:52 Depo-Medrol 80 mg/mL suspension for injection 2023 024 Not available 5 16:59:55 Patient TargetsNo targets recorded. Patient Instructions Encounter Date Encounter Id Patient Instructions Last Modified By Organization Details Last Modified Time 09/14/2024 [id number] mammogram: about this test [email or web address] Not available 09/14/2024 10:31:48 bronchitis: care instructions [email or web address] Not available 09/14/2024 10:34:00 learning about mood disorders [email or web address] Not available 09/14/2024 10:31:48 12/07/2024 [id number] Acute Sinusitis: Care Instructions Not available 12/07/2024 17:17:29 learning about mood disorders [email or web address] Not available 12/07/2024 17:17:29 01/08/2025 [id number] palpitations: care instructions Not available 01/08/2025 09:08:17 snoring: care instructions [email or web address] Not available 01/08/2025 09:07:28 high blood pressure: care instructions [email or web address] Not available 01/12/2025 13:03:24 learning about high blood pressure [email or web address] Not available 01/12/2025 13:03:23 learning about mood disorders Not available 01/12/2025 13:03:24 04/13/2025 [id number] Acute Sinusitis: Care Instructions Not available 04/13/2025 10:14:12 Reason for Referral None Reported. Results Created Date Observation Date Name Description Value Unit Range Abnormal Flag Note LastModifiedBy Organization Detail LastModifiedTime 09/14/20 24 09/15/2024 CBC WITH DIFFE RENTI AL/PL ATELE T WBC 6.9 x10e3 /uL 3.4-10 .8 normal Not Available [facility] ([facility]) [address] [place], [address], 09/15/2024 11:09:38 09/14/20 24 09/15/2024 CBC WITH DIFFE RENTI AL/PL ATELE T RBC 4.46 x10e6 /uL 3.77-5 .28 normal Not Available [facility] ([facility]) [address] [place], [address], 09/15/2024 11:09:38 09/14/20 24 09/15/2024 CBC WITH DIFFE RENTI AL/PL ATELE T hemoglobin 14.2 g/dL 11.1-1 5.9 normal Not Available [facility] ([facility]) [address] [facility] [place], [address], 09/15/2024 11:09:38 09/14/20 24 09/15/2024 CBC WITH DIFFE RENTI AL/PL ATELE T hematocrit 42.5 % 34.0-4 6.6 normal Not Available [facility] ([facility]) [address] [place], [address], 09/15/2024 11:09:38 09/14/20 24 09/15/2024 CBC WITH DIFFE RENTI AL/PL ATELE T MCV 95 fL 79-97 normal Not Available [facility] ([facility]) [address] [place], [address], 09/15/2024 11:09:38 09/14/20 24 09/15/2024 CBC WITH DIFFE RENTI AL/PL ATELE T MCH 31.8 pg 26.6-3 3.0 normal Not Available [facility] ([facility]) [address] [place], [address], 09/15/2024 11:09:38 09/14/20 24 09/15/2024 CBC WITH DIFFE RENTI AL/PL ATELE T MCHC 33.4 g/dL 31.5-3 5.7 normal Not Available [facility] ([facility]) [address] [place], [address], 09/15/2024 11:09:38 09/14/20 24 09/15/2024 CBC WITH DIFFE RENTI AL/PL ATELE T RDW 13.9 % 11.7-1 5.4 Not Available [facility] ([facility]) [address] [place], [address], 09/15/2024 11:09:38 09/14/20 24 09/15/2024 CBC WITH DIFFE RENTI AL/PL ATELE T platelets 281 x10e3 /uL 150-45 0 normal Not Available [facility] ([facility]) [address] [place], [address], 09/15/2024 11:09:38 09/14/20 24 09/15/2024 CBC WITH DIFFE RENTI AL/PL ATELE T neutrophils 61 % not estab. normal Not Available [facility] ([facility]) [address] [facility], [place], [address], 09/15/2024 11:09:38 09/14/20 24 09/15/2024 CBC WITH DIFFE RENTI AL/PL ATELE T lymphs 30 % not estab. normal Not Available [facility] ([facility]) [address] [facility], [place], [address], 09/15/2024 11:09:38 09/14/20 24 09/15/2024 CBC WITH DIFFE RENTI AL/PL ATELE T monocytes 7 % not estab. normal Not Available [facility] ([facility]) [address] [facility], [place], [address], 09/15/2024 11:09:38 09/14/20 24 09/15/2024 CBC WITH DIFFE RENTI AL/PL ATELE T eos 2 % not estab. normal Not Available [facility] ([facility]) [address] [facility], [place], [address], 09/15/2024 11:09:38 09/14/20 24 09/15/2024 CBC WITH DIFFE RENTI AL/PL ATELE T basos 0 % not estab. normal Not Available [facility] ([facility]) [address] [facility], [place], [address], 09/15/2024 11:09:38 09/14/20 24 09/15/2024 CBC WITH DIFFE RENTI AL/PL ATELE T immature cells BENCH TECHNICIAN Not Available [facility] ([facility]) [address] [facility], [place], [address], 09/15/2024 11:09:38 09/14/20 24 09/15/2024 CBC WITH DIFFE RENTI AL/PL ATELE T neutrophils (absolute) 4.2 x10e3 /uL 1.4-7. 0 normal Not Available [facility] ([facility]) [address] [place], [address], 09/15/2024 11:09:38 09/14/20 24 09/15/2024 CBC WITH DIFFE RENTI AL/PL ATELE T lymphs (absolute) 2.1 x10e3 /uL 0.7-3. 1 normal Not Available [facility] ([facility]) [address] [place], [address], 09/15/2024 11:09:38 09/14/20 24 09/15/2024 CBC WITH DIFFE RENTI AL/PL ATELE T monocytes(ab solute) 0.5 x10e3 /uL 0.1-0. 9 normal Not Available [facility] ([facility]) [address] [place], [address], 09/15/2024 11:09:38 09/14/20 24 09/15/2024 CBC WITH DIFFE RENTI AL/PL ATELE T eos (absolute) 0.1 x10e3 /uL 0.0-0. 4 normal Not Available [facility] ([facility]) [address] [place], [address], 09/15/2024 11:09:38 09/14/20 24 09/15/2024 CBC WITH DIFFE RENTI AL/PL ATELE T baso (absolute) 0.0 x10e3 /uL 0.0-0. 2 normal Not Available [facility] ([facility]) [address] [place], [address], 09/15/2024 11:09:38 09/14/20 24 09/15/2024 CBC WITH DIFFE RENTI AL/PL ATELE T immature granulocytes 0 % not estab. Not Available [facility] ([facility]) [address] [place], [address], 09/15/2024 11:09:38 09/14/20 24 09/15/2024 CBC WITH DIFFE RENTI AL/PL ATELE T immature grans (abs) 0.0 x10e3 /uL 0.0-0. 1 Not Available [facility] ([facility]) [address] [facility], [place], [address], 09/15/2024 11:09:38 09/14/20 24 09/15/2024 CBC WITH DIFFE RENTI AL/PL ATELE T NRBC BENCH TECHNICIAN Not Available [facility] ([facility]) [address] [facility], [place], [address], 09/15/2024 11:09:38 09/14/20 24 09/15/2024 CBC WITH DIFFE RENTI AL/PL ATELE T hematology comments: BENCH TECHNICIAN Not Available [facility] ([facility]) [address] [facility], [place], [address], 09/15/2024 11:09:38 09/14/20 24 09/15/2024 COMP. METAB OLIC PANEL (14) glucose 93 mg/dL 70-99 normal Not Available [facility] ([facility]) [address] [facility], [place], [address], 09/15/2024 11:09:39 09/14/20 24 09/15/2024 COMP. METAB OLIC PANEL (14) BUN 7 mg/dL 6-24 normal Not Available [facility] ([facility]) [address] [facility], [place], [address], 09/15/2024 11:09:39 09/14/20 24 09/15/2024 COMP. METAB OLIC PANEL (14) creatinine 0.75 mg/dL 0.57-1 .00 normal Not Available [facility] ([facility]) [address] [facility], [place], [address], 09/15/2024 11:09:39 09/14/20 24 09/15/2024 COMP. METAB OLIC PANEL (14) eGFR 103 mL/mi n/1.7 3 >59 normal Not Available [facility] ([facility]) [address] [place], [address], 09/15/2024 11:09:39 09/14/20 24 09/15/2024 COMP. METAB OLIC PANEL (14) BUN/creatini ne ratio 9 9-23 normal Not Available [facility] ([facility]) [address] [facility], [place], [address], 09/15/2024 11:09:39 09/14/20 24 09/15/2024 COMP. METAB OLIC PANEL (14) sodium 140 mmol/ L 134-14 4 normal Not Available [facility] ([facility]) [address] [facility], [place], [address], 09/15/2024 11:09:39 09/14/20 24 09/15/2024 COMP. METAB OLIC PANEL (14) potassium 4.2 mmol/ L 3.5-5. 2 normal Not Available [facility] ([facility]) [address] [place], [address], 09/15/2024 11:09:39 09/14/20 24 09/15/2024 COMP. METAB OLIC PANEL (14) chloride 107 mmol/ L 96-106 above high normal Not Available [facility] ([facility]) [address] [place], [address], 09/15/2024 11:09:39 09/14/20 24 09/15/2024 COMP. METAB OLIC PANEL (14) carbon dioxide, total 21 mmol/ L 20-29 normal Not Available [facility] ([facility]) [address] [place], [address], 09/15/2024 11:09:39 09/14/20 24 09/15/2024 COMP. METAB OLIC PANEL (14) calcium 9.3 mg/dL 8.7-10 .2 normal Not Available [facility] ([facility]) [address] [place], [address], 09/15/2024 11:09:39 09/14/20 24 09/15/2024 COMP. METAB OLIC PANEL (14) protein, total 6.7 g/dL 6.0-8. 5 normal Not Available [facility] ([facility]) [address] [place], [address], 09/15/2024 11:09:39 09/14/20 24 09/15/2024 COMP. METAB OLIC PANEL (14) albumin 4.5 g/dL 3.9-4. 9 normal Not Available [facility] ([facility]) [address] [facility] [place], [address], 09/15/2024 11:09:39 09/14/20 24 09/15/2024 COMP. METAB OLIC PANEL (14) globulin, total 2.2 g/dL 1.5-4. 5 Not Available [facility] ([facility]) [address] [place], [address], 09/15/2024 11:09:39 09/14/20 24 09/15/2024 COMP. METAB OLIC PANEL (14) bilirubin, total 0.2 mg/dL 0.0-1. 2 normal Not Available [facility] ([facility]) [address] [place], [address], 09/15/2024 11:09:39 09/14/20 24 09/15/2024 COMP. METAB OLIC PANEL (14) alkaline phosphatase 63 IU/L 44-121 normal Not Available [facility] ([facility]) [address] [place], [address], 09/15/2024 11:09:39 09/14/20 24 09/15/2024 COMP. METAB OLIC PANEL (14) AST (SGOT) 16 IU/L 0-40 normal Not Available [facility] ([facility]) [address] [facility], [place], [address], 09/15/2024 11:09:39 09/14/20 24 09/15/2024 COMP. METAB OLIC PANEL (14) ALT (SGPT) 27 IU/L 0-32 normal Not Available [facility] ([facility]) [address] [facility], [place], [address], 09/15/2024 11:09:39 09/14/20 24 09/15/2024 LIPID PANEL cholesterol, total 156 mg/dL 100-19 9 normal Not Available [facility] ([facility]) [address] [place], [address], 09/15/2024 11:09:40 09/14/20 24 09/15/2024 LIPID PANEL triglyceride s 182 mg/dL 0-149 above high normal Not Available [facility] ([facility]) [address] [facility], [place], [address], 09/15/2024 11:09:40 09/14/20 24 09/15/2024 LIPID PANEL HDL cholesterol 30 mg/dL >39 below low normal Not Available [facility] ([facility]) [address] [facility], [place], [address], 09/15/2024 11:09:40 09/14/20 24 09/15/2024 LIPID PANEL VLDL cholesterol sarahi 32 mg/dL 5-40 Not Available [facility] ([facility]) [address] [facility], [place], [address], 09/15/2024 11:09:40 09/14/20 24 09/15/2024 LIPID PANEL LDL chol calc ([facility]) 94 mg/dL 0-99 Not Available [facility] ([facility]) [address] [place], [address], 09/15/2024 11:09:40 09/14/20 24 09/15/2024 LIPID PANEL LDL calc comment: BENCH TECHNICIAN Not Available [facility] ([facility]) [address], [place], [address], 09/15/2024 11:09:40 09/14/20 24 09/15/2024 TSH TSH 0.708 uIU/m L 0.450- 4.500 normal Not Available [facility] ([facility]) [address] [facility], [place], [address], 09/15/2024 11:09:40 09/14/20 24 09/15/2024 VITAM IN D, 25-HY DROXY vitamin D, 25-hydroxy 31.7 NG/mL 30.0-1 00.0 Vitam in D defic iency has been defin ed by the Insti tute of Medic ine and an Endoc rine Socie ty pract ice guide line as a level of serum 25-OH vitam in D less than 20 ng/mL (1,2) . The Endoc rine Socie ty went on to furth er defin e vitam in D insuf ficie ncy as a level betwe en 21 and 29 ng/mL (2). 1. IOM (Inst itute of Medic ine). 2009. Jeniffer ry refer ence clyde es for calci um and D. Gavi juan [place]: [facility] . 2. Indra joseph MF, Destiny ey [place], Bisch off-F errar i WEBB, et al. Evalu ation , treat ment, and preve ntion of vitam in D defic iency : an Endoc rine Socie ty clini sarahi pract ice guide line. JCEM. 2010; 96(7) :1911 -30. Not Available [facility] ([facility]) [address] [facility], [place], [address], 09/15/2024 11:09:41 09/28/20 24 09/21/2024 MAMMO , scree ana, bilat eral No observ ation record ed. [facility] ([facility]) [address], [place], [address], 12/08/2024 12:26:28 09/28/20 24 09/21/2024 MAMMO , scree ana, bilat eral No observ ation record ed. [address] ([facility]) [address], [place], [address], 12/08/2024 12:26:28 10/21/20 24 10/16/2024 US, breas t, bilat eral No observ ation record ed. [address], [place], [place], [address], 12/08/2024 12:26:28 10/22/20 24 10/16/2024 MAMMO , diagn ostic , unila teral No observ ation record ed. [address] ([place]) [address], [place], [place], [address], 12/08/2024 12:26:28 10/22/20 24 10/16/2024 US, breas t, bilat eral No observ ation record ed. [address] (Scheduling) [address], [place], [place], [address], 12/08/2024 12:26:28 10/22/20 24 10/16/2024 US, breas t, bilat eral No observ ation record ed. [address] ([facility]) [address], [place], [address], 12/08/2024 12:26:28 10/22/20 24 09/21/2024 MAMMO , scree ana, bilat eral No observ ation record ed. [address] ([facility]) [address], [place], [address], 12/08/2024 12:26:28 11/23/19 25 11/02/2024 ultra sound guide d core biops y (PROC ) No observ ation record ed. [id number] [facility] ([facility]) [address], [place], [address], 12/08/2024 12:26:28 12/28/19 25 12/25/2024 XR, chest No observ ation record ed. [facility] ([facility]) [address], [place], [address], 12/29/2024 14:43:08 01/06/20 25 12/21/2024 PFT, compl ete No observ ation record ed. [facility] [address], [place], [address], 01/05/2025 13:21:00 01/09/20 elect issacar diogr am No observ ation record ed. Not Available 2024 09:27:49 03/05/20 25 02/20/2025 home sleep study No observ ation record ed. [email or web address] [facility] [address] [facility] [address], [place], [address], 03/05/2025 11:18:08 Result Notes None recorded. Problems Name Problem SNOMED Code Status Onset Date Resolution Date Notes Provider Name and Address Organization Details Recorded Time Essential hypertension 35350045 Active 2023 SAMIR Luu [address] [place] [address], [phone], [employer] 4 11:11:36 Hypothyroidism 13164423 Active 2023 SAMIR Luu [address] [place] [address], [address] 8, [employer] 4 11:11:44 Depressive disorder 93304709 Active 2023 SAMIR Luu [address] [place] [address], [address] 8, [employer] 4 11:11:31 Acute bronchitis 13720564 Active 2023 SAMIR Luu [address] [place] [address], [address] 8, [employer] 4 10:32:02 Mammography abnormal 371764369 Active 2023 Nubia Toribio SAMIR [address] [place] [address], [address] 8, [employer] 4 12:08:01 Acute sinusitis 68750749 Active 2024 Nubia ToribioSAMIR [address] [place] [address], [address] 8, [employer] 5 17:16:08 Snoring 05172023 Active 2024 Nubia Toribio SAMIR [address] [place] [address], [address] 8, [employer] 5 09:07:10 Acute maxillary sinusitis 30875790 Active 2024 Nubia SAMIR Toribio [address] [place] [address], [address] 8, [employer] 5 10:13:27 Notes:Some problems listed i n Document: #[id number] could not be added to this patient's chart. Please review this document and add these problems to the patient's chart manually as needed. Problem Notes None recorded. Procedures Surgical History Date Name Laterality Status Provider Name and Address Organization Details Recorded Time 4 Most Recent Mammogram completed [employer] 12/07/2024 17:03:24 Gallbladder Surgery completed [employer] 09/14/2024 10:12:39 Carpal Tunnel Surgery completed [employer] 09/14/2024 10:15:51 Imaging Results None recorded. Procedure Notes None recorded. Medical Equipment None Reported. Allergies Allergen ID Allergen Name Allergen Category Reaction Reaction Severity Criticality Documentation Date Start Date Code Code System Note Provider Name and Address Organization Details Recorded Time 49977 lisinopri l medicatio n cough Not available Not available 01/08/2025 96579 [employer] 08:34:36 Medications Name Sig Start Date Stop Date Status Note LastModified by Organization Details LastModified Time promethazin e-DM 6.25 mg-15 mg/5 mL oral syrup Take 5 mL every 4 hours by oral route as needed for 10 days, for cough. 12/07 completed Not Available Not Available Not Available azithromyci n 250 mg tablet TAKE 2 TABLETS (500 MG) BY ORAL ROUTE ONCE DAILY FOR 1 DAY THEN 1 TABLET (250 MG) BY ORAL ROUTE ONCE DAILY FOR 4 DAYS 01/08 completed Not Available Not Available Not Available prednisone 20 mg tablet TAKE 1 TABLET BY MOUTH 2 TIMES A DAY FOR 5 DAYS active Not Available Not Available No t Available Depo-Medrol 80 mg/mL suspension for injection Take 80 mg every day by injection route as directed for 1 day. 12/07 completed Not Available Not Available Not Available levothyroxi ne 25 mcg tablet Take 1 tablet every day by oral route as directed for 90 days, for hypothyro idism. active Not Available Not Available No t Available ceftriaxone 1 gram solution for injection Take 1 g every day by injection route as directed for 1 day. 12/07 completed Not Available Not Available Not Available amoxicillin 875 mg tablet TAKE 1 TABLET BY MOUTH TWICE DAILY FOR 10 DAYS 01/08 completed Not Available Not Available Not Available levofloxaci n 500 mg tablet TAKE 1 TABLET BY MOUTH ONCE A DAY FOR 7 DAYS active Not Available Not Available No t Available doxycycline hyclate 100 mg tablet Take 1 tablet twice a day by oral route as directed for 10 days, for infection . 12/07 completed Not Available Not Available Not Available Nasal Decongestan t (pseudoephe drine) 120 mg tablet,exte nded release Take 1 tablet every 12 hours by oral route as directed for 10 days. 01/08 completed Not Available Not Available Not Available aspirin 04/13 completed Not Available Not Available Not Available nebivolol 5 mg tablet Take 1 tablet every day by oral route as directed for 90 days, for high blood pressure. active Not Available Not Available No t Available vilazodone 20 mg tablet Take 1 tablet every day by oral route as directed for 90 days, for mood. active Not Available Not Available No t Available Vraylar 1.5 mg capsule Take 1 capsule every day by oral route for 90 days. active Not Available Not Available No t Available Vitals Date Recorded Body height Body mass index (BMI) Body weight Body temperature Oxygen saturation Oxygen saturation in Arterial blood by Pulse oximetry Heart rate Systolic blood pressure Diastolic blood pressure Provider Name and Address Organization Details Last Updated DateTime 5 167.64 cm 25.3 kg/m2 13203 g 98.5 [degF] 98 % 98 % 78 /min 124 mm[Hg] 86 mm[Hg] [employer] 5 17:01:53 Date Recorded Body height Body mass index (BMI) Body weight Heart rate Oxygen saturation Oxygen saturation in Arterial blood by Pulse oximetry Body temperature Systolic blood pressure Diastolic blood pressure Provider Name and Address Organization Details Last Updated DateTime 5 167.64 cm 25.8 kg/m2 54105.3 4 g 86 /min 98 % 98 % 97.9 [degF] 126 mm[Hg] 88 mm[Hg] [employer] 5 08:34:15 Date Recorded Body height Body mass index (BMI) Body weight Oxygen saturation Oxygen saturation in Arterial blood by Pulse oximetry Heart rate Body temperature Systolic blood pressure Diastolic blood pressure Provider Name and Address Organization Details Last Updated DateTime 5 167.64 cm 26.2 kg/m2 25399.6 8 g 98 % 98 % 104 /min 98 [degF] 128 mm[Hg] 88 mm[Hg] [employer] 5 09:35:28 Date Recorded Body weight Body mass index (BMI) Body height Body temperature Heart rate Oxygen saturation Oxygen saturation in Arterial blood by Pulse oximetry Systolic blood pressure Diastolic blood pressure Systolic blood pressure Diastolic blood pressure Provider Name and Address Organization Details Last Updated DateTime 4 01974.3 g 27.6 kg/m2 167.64 cm 98.6 [degF] 76 /min 97 % 97 % 138 mm[Hg] 100 mm[Hg] 138 mm[Hg] 96 mm[Hg] [employer] 4 10:13:26 Social History Question Answer Notes LastModified by Organizat ion Details LastModified Time Tobacco Smoking Status Current Every Day Smoker Sara hillman, [employer] 09/14/2024 10:12:38 Do You Have An Advance Directive? No Information not available 09/14/2024 Is Your Home Air Conditioned? Yes Information not available 09/14/2024 Do You Wear A Helmet When Biking? No Information not available 09/14/2024 Are You Blind Or Do You Have Difficulty Seeing? No Information not available 09/14/2024 What Is Your Level Of Caffeine Consumption? Moderate Information not available 09/14/2024 What Type Of Corporate Aircraft Mechanic Do You Use? None Information not available 09/14/2024 Have You Been To An Area Known To Be High Risk For COVID-19? No Information not available 09/14/2024 Are You Deaf Or Do You Have Serious Difficulty Hearing? Yes Information not available 09/14/2024 What Type Of Diet Are You Following? REGULAR Information not available 09/14/2024 What Is The Highest Grade Or Level Of School You Have Completed Or The Highest Degree You Have Received? 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 2 Information not available 09/14/2024 Have There Been Any Changes To Your Family Or Social Situation? No Information no t available 09/14/2024 Are There Any Guns Present In Your Home? Yes Information not available 09/14/2024 Which Of Your Hands Is Dominant? Right Information not available 09/14/2024 Do You Have A Medical Power Of Glove Cleaner? No Information not available 09/14/2024 What Was The Date Of Your Most Recent Tobacco Screening? 04/13/2025 Information not available 04/13/2025 Have You Ever Been Counseled For Unhealthy Alcohol Use? No Information not available 09/14/2024 Do You Have Any Pets? Yes Information not available 09/14/2024 Do You Use Protection During Sex? No Information not available 09/14/2024 What Is Your Relationship Status? Information not available 09/14/2024 Have You Repeated Any Grades? No Information not available 09/14/2024 Do You Use Your Seat Belt Or Car Seat Routinely? Yes Information not available 09/14/2024 Are You Sexually Active? Yes Information not available 09/14/2024 Do You Have Any Siblings? Yes Information not available 09/14/2024 Do You Have Smoke And Carbon Monoxide Detectors In Your Home? Yes Information not available 09/14/2024 At What Age Did You Start Smoking Tobacco? 14 Information not available 09/14/2024 Are You Passively Exposed To Smoke? Yes Information no t available 09/14/2024 Are There Any Smokers In Your House? Yes Information not available 09/14/2024 How Much Tobacco Do You Smoke? 1 PPD Information not available 09/14/2024 Do You Participate In Social Media? Yes Information not available 09/14/2024 Do You Use Sunscreen Routinely? Yes Information not available 09/14/2024 Has Tobacco Cessation Counseling Been Provided? Yes Information not available 09/14/2024 On What Date Was Tobacco Cessation Counseling Provided? 04/13/2025 Information not available 04/13/2025 Have You Recently Traveled Abroad? No Information not available 09/14/2024 Do You Have Difficulty Walking Or Climbing Stairs? No Information not available 09/14/2024 Are You Currently In School? No Information not available 09/14/2024 Do You Have Any Dietary Restrictions? No Information not available 09/14/2024 How Many Days In The Past Year Have You Consumed 4 Or More Drinks? 7 Information no t available 09/14/2024 Sex: Female Functional Status Question Answer Note LastModified by Organizat ion Details LastModified Time Do you use any illicit or recreational drugs? No Information not available 09/14/2024 Do you or have you ever used any other forms of tobacco or nicotine? No Information not available 09/14/2024 What is your level of alcohol consumption? Occasional Information not available 09/14/2024 Are you currently employed? Yes Information not available 09/14/2024 Do you have transportation difficulties? No Information not available 09/14/2024 Are you able to walk? YESWOREST Information not available 09/14/2024 Do you have difficulty doing errands alone? No Information not available 09/14/2024 Are you able to care for yourself? Yes Information n ot available 09/14/2024 Do you have difficulty dressing or bathing? No Information not available 09/14/2024 What is your exercise level? Occasional Information not available 09/14/2024 Mental Status Question Answer Note LastModified by Organizat ion Details LastModified Time Do you feel stressed (tense, restless, nervous, or anxious, or unable to sleep at night)? [id number] Information not available 09/14/2024 Do you have difficulty concentrating, remembering or making decisions? No Information no t available 09/14/2024 Are you or have you been involved with bullying? No Information not available 09/14/2024 Family History Relationship Description Onset Age of this Age Resolved Age Notes LastModified by Organization Details LastModified Time Paternal Grandmother Hypertensive disorder Not available 2023 10:12:38 Paternal Grandfather Hypertensive disorder Not available 2023 10:12:38 Father Hypercholest erolemia Not available 2023 10:12:38 Father Hypertensive disorder Not available 2023 10:12:38 Medical History Condition Response Coronary Artery Disease N Other N Gout N Kidney Stones N Blood Diseases N Hyperthyroidism N Blood Transfusion N Breast Cancer N Emergency room visit since last appointm ent. N COPD N Depression Y Dermatologic Disorders N Lung Disease N Hypothyroidism Y Developmental or Behavioral Disorders N Defects or Inherited Disease N Breast Problem N Difficulty Swallowing N Anesthesia Complications N History of STI N Anxiety Disorder Y Meniere's disease N Autoimmune disease N Muscle, Joint, or Bone Problems N Vision or Eye Problems N Arthritis N Infertility N Polyps N Mental Disorder N Congenital Anomalies N Acid Reflux (GERD) N Cancer N Stroke N Neurologic/Epilepsy N Endometriosis N Bladder or Kidney Problems N High Cholesterol N Liver Disease N Psychiatric/Mental Health Condition N Organ Transplant N Fibromyalgia N Headaches N Schizophrenia N Dialysis N Kidney Disease N Allergies/Hayfever N Heart Problems N Ear or Hearing Problems N Hospitalizations N Learning Disorder N Artificial Joints N Thyroid Problems Y GI Problems N Acne N ADD/ADHD N Eating Disorder N Anemia N Constipation N Mental Illness N Ovarian Cancer N Diabetes N Bedwetting N Hepatitis/Liver Disease N Tuberculosis N Eczema N Diverticulitis N Abuse/Domestic Violence N Asthma N Trauma/Violence N Substance Abuse N Reflux/GERD N Depression/ depression N Hepatitis N Heart Disease N Pulmonary Embolism N Tourette Syndrome N Chronic Ear Infections N Pre-Eclampsia N Hypertension Y Chicken Pox N Autism Spectrum Disorder (ASD) N Osteoporosis N Thrombophilias N Gynecological History Statement/Question Response Flow Moderate Date of LMP 03/29/2025 Menses Monthly Y Duration of Flow (days) 6 Date of Last Pap Smear Current Control Method None Age at Menarche 15 Most Recent Mammogram 10/16/2024 LMP Approximate Age at First Child 25 Obstetrics History GPAL:G 2 P 0 1 1 1 Type Value Multiple Births 0 Full Term 0 Induced 1 Spontaneous 0 Premature 1 Living 1 Ectopics 0 Total 2 Immunizations Vaccine Type Date Status Note Provider Nam e and Address Organization Details Recorded Time Influenza, split virus, quadrivalent, preservative 9 completed Sara Vice null, [employer] 12/07/2024 16:57:55 COVID-19, mRNA, LNP-S, PF, 30 mcg/0.3 mL dose 1 completed Sara Vice null, [employer] 12/07/2024 16:57:55 COVID-19, mRNA, LNP-S, PF, 30 mcg/0.3 mL dose 1 completed Sara Vice null, [employer] 12/07/2024 16:57:55 COVID-19, mRNA, LNP-S, PF, 30 mcg/0.3 mL dose 1 completed Sara Vice null, [employer] 12/07/2024 16:57:55 Td (adult), 2 Lf tetanus toxoid, preservative free, adsorbed 9 completed Sara Vice null, [employer] 12/07/2024 16:57:55 Hep B, adolescent/high risk infant 8 completed Sara Vice null, [employer] 12/07/2024 16:57:55 Hep B, adolescent/high risk 8 completed Sara Vice null, [employer] 12/07/2024 16:57:55 Hep B, adolescent/high risk 8 completed Sara Vice null, [employer] 12/07/2024 16:57:55 Hep A, adult 9 completed Sara Vice null, [employer] 12/07/2024 16:57:55 Hep A, adult 8 completed Sara Vice null, [employer] 12/07/2024 16:57:55 Past Encounters Encounter ID Performer Location Encounter Start Date Encounter Closed Date Diagnosis/Indication Diagnosis SNOMED-CT Code Diagnosis ICD10 Code Diagnosis Note [id number] SAMIR Luu [address] [address] 09/14/2024 09:54:35 09/14/2024 11:00:46 Screening mammography 63770157 Z12.31 Hypothyroidism 95542611 E03.9 Essential hypertension 90986749 I10 Depressive disorder 3548 9007 F32.A Acute bronchitis 0719514 2 J20.9 [id number] SAMIR Luu [address] [address] 12/07/2024 16:30:33 12/07/2024 17:14:46 Acute sinusitis 65033673 J01.90 Depressive disorder 3548 9007 F32.A [id number] SAMIR Luu [address] [address] 01/08/2025 08:25:59 01/08/2025 09:06:43 Palpitations 07144211 R00.2 Snoring 05238262 R06.83 Depressive disorder 0208 9007 F32.A Try taking every other day Essential hypertension 45014090 I10 May need to decrease dose if hypotensio n persists [id number] SAMIR Luu [facility] [address] [place] [address] 04/13/2025 09:22:52 04/13/2025 10:13:32 Acute maxillary sinusitis 81428514 J01.00 Rest, fluids. RTC if not improving. Health Concerns Section Related Observation LastModified by Organization Detai ls LastModified Time None Recorded Concern Status LastModified by Organization Details LastModified Time None Recorded Advance Directives Directive N: Payers Insurance Date Sequence Insurance Name Policy Number Policy Lam Covered Member ID Lam Member ID Guarantor Name 04/13/2025 1 [facility] [id number] Lauro Chacko [id number] Francois Chacko Notes Date Note Type Note Provider Name and Address Organization Details Recorded Time 09/14/2024 text/html Patient presents to establish care at [facility].Has been sick for over a week. Has had sinus pain, drainage, cough, shortness of breath for over a week. She was seen at [facility] and is on Amoxil with no improvement. SHe is losing her voice. Coughing so hard that she can't sleep.Also has history of HTN, hypothyroidism, depression. Due for labs. SAMIR Luu [address] [place], [address], [facility] [employer] 09/14/2024 11:25:53 12/07/2024 text/html Cough, congestion, sinus pressure, headache, sore throat X 3-4 days. No fever. No vomiting or diarrhea.Patient states she has had no enerby, no motivation for several months. Takes Viibryd and definitely thinks it helped her, but just isn't feeling like herself. SAMIR Luu [address] [place], [address], [employer] 12/08/2024 12:37:51 01/08/2025 text/html Patient presents for followup.States that she is doing much better on Vraylar but isn't sure that it might be dropping her blood pressure. Had one episode a few weeks ago where her watch told her she was in A-fib. No episodes since.Would like a sleep study. Snores at night and always sleepy during the day. SAMIR Luu [address] [place], [address], [employer] 01/12/2025 13:05:50 04/13/2025 text/html Sinus pain, pressure, congestion, green sputum for a week or so. OTC meds have not helped. No fever. SAMIR Luu [address] [facility], [place], [address], [employer] 04/13/2025 10:55:18 OBGyn Episode No OBEpisode recorded.
--- OUTSIDE RECORDS SUMMARY | 2025-05-06 07:41 | XMS_ITS | Data Portability ---
Author Organization [place] - Dia Palmer c, [facility] Address [address] [place] [address] Care Team Providers Care Senior Infrastructure Engineer Name Role Phone STEVE MARK Primary Care Provider [phone] Assessment Encounter Date Assessment Date Assessment LastModified by Organization Details LastModified Time 02/21/2022 02/21/2022 Pt continues to jael rx well. ROM has been well maintained. Persistent MTrP of the Right shoulder noted with palpation exam. This continues to respond well to man st and DN. Twitch response with resolution not over the LT. Updated TE per flow sheet. Emphasis on scapular kinematics to prevent impingement moment. Will assess jael to rx next visit. Continue with POT progressing as jael. Next appt 02/28/22 Not available 02/21/2022 14:38:32 02/28/2022 02/28/2022 Pt jael todays visit well. continued report of numbness in the tingling in to the medial hand at night. Able to reproduce with pec min st. Anticipate this is related to neural compression with the pec in a tensioned position. Pt responds well to man st. Shoulder ROM WNL. Mild popping noted with mid row. Updated TE per flwo sheet. in chart. SSc MTrP improved with DN. Concluded rx session with DN. Will assesss jael to rx next visit. Continue with POT progressing as jael. Next appt 03/08/22 Not available 02/28/2022 11:19:54 03/08/2022 03/08/2022 Pt continues to jael rx well. Noted improved guarding and MTrp of the R UT with pre-rx assessment. Inc popping over the ant st noted with man assessment and resisted pressing. Consistent with biceps instability. Responds well to DN of the UT to address deep MTrP. TE per flow sheet. Pt able to complete without complaint. Will assess jael to rx next visit. Continue with POT progressing as jael. Next appt 03/15/22 Not available 03/08/2022 09:55:23 03/15/2022 03/15/2022 Pt jael todays visit well. Noted persistent inc in tenderness over the biceps and cuff insertion with palpation exam. ROM has been well maintained and MTrP of the SSc, Medial stabilizers and UT are resolved. GH jt motion remains appropriate. Mild laxity noted with load and shift assessment. No jt line pain noted. Able to clear active elevation pain with scapular assist test. Indicative of mechanical loadin deficit resulting in impingement. Provided new HEP to facilitate dec in pain. If no improvement, consider referral to MD for imaging. TE per flow sheet without complaint. Responds well to man st. Continue with POT progressing as jael. Next appt 03/22/22 Not available 03/15/2022 09:18:02 03/22/2022 03/22/2022 Patient tolerated today's treatment session well. Noted improved scapular motion with functional loading during therapeutic exercise. Exercises per flow sheet in chart. Continued emphasis on dynamic stabilization. Continued signs and symptoms of rotator cuff involvement. Encouraged patient to continue to decrease lever arm with functional activities. Patient declined dry needling at today's treatment session due to needing to leave the clinic. Will resume next visit if needed. Continue with POT progressing as jael. Next appt 04/05/22 Not available 03/22/2022 10:12:26 Plan of Treatment Reminders Order Date Submit Date Provider Last Modified By Organization Details Last Modified Time Details Appointments None record ed. Lab None record ed. Referral None record ed. Procedures None record ed. Surgeries None record ed. Imaging None record ed. Medication Orders None record ed. Patient TargetsNo targets recorded. Patient InstructionsNo instructions recorded. Reason for Referral None Reported. Problems Name Problem SNOMED Code Status Onset Date Resolution Date Notes Provider Name and Address Organization Details Recorded Time Impingement syndrome of right shoulder region 8977452832737 02 Active 2021 NIMESH DEL REAL II, PT, DPT [address] [place], [address], [facility] 2 08:47:21 Muscle weakness 41389884 Active 2021 NIMESH DELR EAL II, PT, DPT [address] [place], [address], [facility] 2 08:47:22 Muscular incoordinat ion 12542554 Active 2021 NIMESH DEL REAL II, PT, DPT [address] [place], [address], [facility] 2 08:47:23 Problem Notes None recorded. Procedures Surgical History Date Name Laterality Status Provider Name and Address Organization Details Recorded Time 2 PT Manual Therapy completed NIMESH DEL REAL II, PT, DPT [address] [place], [address], [facility] 03/22/2022 10:11:31 2 PT Therapeutic Exercise completed NIMESH DEL REAL II, PT, DPT [address] [place], [address], [facility] 03/22/2022 10:11:14 2 PT Manual Therapy completed NIMESH DEL REAL II, PT, DPT [address] [place], [address], [facility] 03/15/2022 09:13:23 2 PT Therapeutic Exercise completed NIMESH DEL REAL II, PT, DPT [address] [place], [address], [facility] 03/15/2022 09:13:08 2 PT Manual Therapy completed NIMESH DEL REAL II, PT, DPT [address] [place], [address], [facility] 03/08/2022 09:40:21 2 PT Therapeutic Exercise completed NIMESH DEL REAL II, PT, DPT [address] [place], [address], [facility] 03/08/2022 09:40:07 2 PT Manual Therapy completed NIMESH MARCELOT II, PT, DPT [address] [place], [address], [facility] 02/28/2022 11:20:11 2 PT Therapeutic Exercise completed NIMESH MARCELOT II, PT, DPT [address] [place], [address], [facility] 02/28/2022 11:20:13 2 PT Manual Therapy completed NIMESH MARCELOT II, PT, DPT [address] [place], [address], [facility] 02/21/2022 14:37:13 2 PT Therapeutic Exercise completed NIMESH MARCELOT II, PT, DPT [address] [place], [address], [facility] 02/21/2022 14:36:56 2 PT Manual Therapy completed NIMESH MARCELOT II, PT, DPT [address] [place], [address], [facility] 03/13/2022 05:00:01 2 PT Therapeutic Exercise completed NIMESH MARCELOT II, PT, DPT [address] [place], [address], [facility] 03/13/2022 04:59:48 2 PT Manual Therapy completed NIMESH MARCELOT II, PT, DPT [address] [place], [address], [facility] 02/01/2022 09:45:32 2 PT Therapeutic Exercise completed NIMESH MARCELOT II, PT, DPT [address] [place], [address], [facility] 02/01/2022 09:45:11 2 PT Evaluation - Low Complexity completed NIMESH MARCELOT II, PT, DPT [address] [place], [address], [facility] 01/16/2022 08:22:37 2 PT Therapeutic Exercise completed NIMESH DEL REAL II, PT, DPT [address] [place], [address], [facility] 01/16/2022 08:23:04 Imaging Results None recorded. Procedure Notes None recorded. Medical Equipment None Reported. Allergies No known drug allergies Medications Name Sig Start Date Stop Date Status Note LastModified by Organization Details LastModified Time Medrol (Kris) 4 mg tablets in a dose pack as directed 022 active Not Available Not Available Not Avai lable Micronor (28) 0.35 mg tablet Daily 009 active Frequen cy: daily;M edicati on Descrip tion: norethi ndrone; Dosage: 1; Route:o ral; refills :12; Quantit y:28 tablet Not Available Not Available Not Available Lexapro 10 mg tablet Daily 008 active Duratio n: 30 days;Fr equency : daily;M edicati on Descrip tion: escital opram; Dosage: 1; Route:o ral; refills :5; Quantit y:30 tablet Not Available Not Available Not Available Vitals None Recorded Social History None recorded. Functional Status None recorded. Mental Status None recorded. Family History Nothing Reported. Medical History Condition Response Heart Conditions N Diabetes N Bleeding Disorder N Asthma N Blood Thinners N Sleep Apnea N High Cholesterol N Liver Disease N Included as Review of Systems Y Hypertension Y Kidney Disease N Gynecological HistoryNo gynecological history recorded. Obstetrics History GPAL:G 0 P 0 0 0 0 Past Encounters Encounter ID Performer Location Encounter Start Date Encounter Closed Date Diagnosis/Indication Diagnosis SNOMED-CT Code Diagnosis ICD10 Code Diagnosis Note [id number] CORDELL ADAMS MD [facility] [address] [place] [address] 01/09/2022 09:03:03 01/09/2022 12:18:05 Impingement syndrome of right shoulder region 8933970342 01752 M75.41 [id number] NIMESH DEL REAL II, PT, DPT PHYSICAL THERAPY / HAND THERAPY [facility] [address] [place] [address] 01/16/2022 07:43:49 01/16/2022 08:48:05 Impingement syndrome of right shoulder region 5942566725 61019 M75.41 Muscle weakness 53948483 M62.81 Muscular incoordination 49957908 R27.8 [id number] NIMESH DEL REAL II, PT, DPT PHYSICAL THERAPY / HAND THERAPY [facility] [address] [place] [address] 02/01/2022 08:49:58 02/01/2022 11:31:25 Muscle weakness 79075073 M62.81 Impingemen t syndrome of right shoulder region 4254225028 05328 M75.41 Muscular incoordination 04887396 R27.8 [id number] NIMESH DEL REAL II, PT, DPT PHYSICAL THERAPY / HAND THERAPY [facility] [address] [place] [address] 02/14/2022 07:39:13 02/16/2022 14:18:16 Impingement syndrome of right shoulder region 0775713366 62244 M75.41 Muscle weakness 06013286 M62.81 Muscular incoordination 76872850 R27.8 [id number] NIMESH DEL REAL II, PT, DPT PHYSICAL THERAPY / HAND THERAPY [facility] [address] [place] [address] 02/21/2022 07:46:02 02/21/2022 15:02:17 Muscle weakness 48056238 M62.81 Impingemen t syndrome of right shoulder region 2036480594 72512 M75.41 Muscular incoordination 07394079 R27.8 [id number] NIMESH DEL REAL II, PT, DPT PHYSICAL THERAPY / HAND THERAPY [facility] [address] [place] [address] 02/28/2022 07:46:07 02/28/2022 12:00:40 Muscle weakness 39799907 M62.81 Impingemen t syndrome of right shoulder region 3058903771 03700 M75.41 Muscular incoordination 30416492 R27.8 [id number] NIMESH DEL REAL II, PT, DPT PHYSICAL THERAPY / HAND THERAPY [facility] [address] [place] [address] 03/08/2022 08:31:07 03/08/2022 09:58:39 Muscle weakness 73521320 M62.81 Impingemen t syndrome of right shoulder region 5243015241 50081 M75.41 Muscular incoordination 19482253 R27.8 [id number] NIMESH DEL REAL II, PT, DPT PHYSICAL THERAPY / HAND THERAPY [facility] [address] [address] 03/15/2022 08:21:21 03/15/2022 10:13:45 Muscle weakness 80119138 M62.81 Impingemen t syndrome of right shoulder region 5647257059 62674 M75.41 Muscular incoordination 58004397 R27.8 [id number] NIMESH DEL REAL II, PT, DPT PHYSICAL THERAPY / HAND THERAPY [facility] [address] [address] 03/22/2022 08:09:19 03/22/2022 11:42:44 Muscle weakness 07803685 M62.81 Impingemen t syndrome of right shoulder region 7406019947 45824 M75.41 Muscular incoordination 36306670 R27.8 Health Concerns Section Related Observation LastModified by Organization Detai ls LastModified Time None Recorded Concern Status LastModified by Organization Details LastModified Time None Recorded Advance Directives Directive None Recorded Payers Insurance Date Sequence Insurance Name Policy Number Policy Lam Covered Member ID Lam Member ID Guarantor Name 04/02/2022 1 [facility] [id number] Lauro Chacko [id number] Francois Chacko 01/09/2022 1 [employer]: [facility] [id number] Francois Chacko [id number] Francois Chacko Notes Date Note Type Note Provider Name and Address Organization Details Recorded Time 02/21/2022 text/html Pt reports her shoulder has been worse this week. Reports she attempted to return to resistance training which resulted in the exacerbation of symptoms. Reports pain remains over the lateral shoulder. Denies any new complaints. NIMESH DEL REAL II, PT, DPT [address] [place], [address], [facility] 02/21/2022 14:38:43 02/28/2022 text/html Pt reports her shoulder continues to improve. States the sub-scapular knot is much improved. Reports she has no new complaints. States HEP is going well. NIMESH DEL REAL II, PT, DPT [address] [place], [address], [facility] 02/28/2022 11:20:21 03/08/2022 text/html Pt reports her shoulder has been more painful this week. States the sub-scapular MTrP is resolved. Reports she has noted inc pain and popping over the anterior shoulder. States she has been compliant with her HEP. No new complaints. NIMESH DEL REAL II PT, DPT [address] [place], [address], [facility] 03/08/2022 09:55:33 03/15/2022 text/html Pt reports her back is doing much better. States she continues to have inc pain in the anterior aspect of the shoulder. Reports she has been compliant with her HEP. Denies any new complaints. NIMESH DEL REAL II PT, DPT [address] [place], [address], [facility] 03/15/2022 09:18:13 03/22/2022 text/html Patient reports her shoulder is doing better this week. States her pain has not been as intense. Reports she continues to have a mild lateral shoulder pain with slight referral into the lateral arm. Reports remains compliant with her home exercise program. Denies any new complaints at this time. NIMESH DEL REAL II PT, DPT [address] [place], [address], [facility] 03/22/2022 10:12:43 OBGyn Episode No OBEpisode recorded.
--- OUTSIDE RECORDS SUMMARY | 2025-05-06 07:41 | XMS_ITS | Continuity of Care Document ---
Author Organization [facility] [place] Address [address] [place] [address] Assessment No assessment recorded. Plan of Treatment Reminders Order Date Submit Date Provider Last Modified By Organization Details Last Modified Time Details Appointments None recorded. Lab None recorded. Referral None recorded. Procedures None recorded. Surgeries None recorded. Imaging None recorded. Medication Orders levofloxaci n 500 mg tablet 2024 025 [facility], [address] [place] [address], [id number], 5 10:37:33 prednisone 20 mg tablet 2024 025 [facility], [address] [place] [address], [id number], 5 10:37:34 Patient TargetsNo targets recorded. Patient Instructions Encounter Date Encounter Id Patient Instructions Last Modified By Organization Details Last Modified Time 04/13/2025 [id number] Acute Sinusitis: Care Instructions [email or web address] Not available 04/13/2025 10:14:12 Reason for Referral None Reported. Problems Name Problem SNOMED Code Status Onset Date Resolution Date Notes Provider Name and Address Organization Details Recorded Time Essential hypertension 13803212 Active 2023 SAMIR Luu [address] [place] [address], [address], [facility] 4 11:11:36 Hypothyroidism 27077518 Active 2023 SAMIR Luu [address] [place] [address], [address], [facility] 4 11:11:44 Depressive disorder 57297274 Active 2023 SAMIR Luu [address] [place] [address], [address], [facility] 4 11:11:31 Acute bronchitis 19060552 Active 2023 SAMIR Luu [address] [place] [address], [address], [facility] 4 10:32:02 Mammography abnormal 305333734 Active 2023 SAMIR Luu [address] [place] [address], [address], [facility] 4 12:08:01 Acute sinusitis 01547793 Active 2024 SAMIR Luu [address] [place] [address], [address], [facility] 5 17:16:08 Snoring 57480934 Active 2024 SAMIR Luu [address] [place] [address], [address], [facility] 5 09:07:10 Acute maxillary sinusitis 18874294 Active 2024 SAMIR Luu [address] [place] [address], [address], [facility] 5 10:13:27 Notes:Some problems listed i n Document: #[id number] could not be added to this patient's chart. Please review this document and add these problems to the patient's chart manually as needed. Problem Notes None recorded. Procedures Surgical History Date Name Laterality Status Provider Name and Address Organization Details Recorded Time 4 Most Recent Mammogram completed [employer] 12/07/2024 17:03:24 Gallbladder Surgery completed [employer] 09/14/2024 10:12:39 Carpal Tunnel Surgery completed Sara Vice [employer] 09/14/2024 10:15:51 Imaging Results None recorded. Procedure Notes None recorded. Medical Equipment None Reported. Allergies Allergen ID Allergen Name Allergen Category Reaction Reaction Severity Criticality Documentation Date Start Date Code Code System Note Provider Name and Address Organization Details Recorded Time 83365 lisinopri l medicatio n cough Not available Not available 01/08/2025 70543 [facility], [employer] 08:34:36 Medications Name Sig Start Date [...] Updated DateTime 5 167.64 cm 26.2 kg/m2 47045.6 8 g 98 % 98 % 104 /min 98 [degF] 128 mm[Hg] 88 mm[Hg] Sara [employer] 09:35:28 Social History Question Answer Notes LastModified by Organizat ion Details LastModified Time Tobacco Smoking Status Current Every Day Smoker Sara hillman [employer] 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 [id number] Information not available 09/14/2024 Who Is Your [...] Do You Have A Medical Power Of Candy Dipper? No Information not available 09/14/2024 What Was [...] Functional Status Question Answer Note LastModified by [email or web address] ion Details LastModified Time Do you use [...] anxious, or unable to sleep at night)? PW1756-3 Information not available 09/14/2024 Do you have [...] Diseases N Hyperthyroidism N Blood Transfusion N COPD N Depression Y Dermatologic Disorders N Anxiety Disorder Y Autoimmune disease N Muscle, Joint, or Bone Problems N Vision or Eye Problems N Arthritis N Infertility N Polyps N Mental Disorder N Acid Reflux (GERD) N Cancer N Stroke N Neurologic/Epilepsy N Fibromyalgia N Headaches N Kidney Disease N Heart Problems N Ear or Hearing Problems N Hospitalizations N Learning Disorder N Artificial Joints N Acne N Eating Disorder N Constipation N Hepatitis/Liver Disease N Tuberculosis N Asthma N Trauma/Violence N Substance Abuse N Hepatitis N Pulmonary Embolism N Chronic Ear Infections N Chicken Pox N Autism Spectrum Disorder (ASD) N Thrombophilias N Breast Cancer N Emergency room visit since last appointm ent. N Lung Disease N Hypothyroidism Y Developmental or Behavioral Disorders N Defects or Inherited Disease N Breast Problem N Difficulty Swallowing N Anesthesia Complications N History of STI N Meniere's disease N Congenital Anomalies N Endometriosis N Bladder or Kidney Problems N High Cholesterol N Liver Disease N Psychiatric/Mental Health Condition N Organ Transplant N Schizophrenia N Dialysis N Allergies/Hayfever N Thyroid Problems Y GI Problems N ADD/ADHD N Anemia N Mental Illness N Ovarian Cancer N Diabetes N Bedwetting N Eczema N Diverticulitis N Abuse/Domestic Violence N Reflux/GERD N Depression/ depression N Heart Disease N Tourette Syndrome N Pre-Eclampsia N Hypertension Y Osteoporosis N Gynecological History Statement/Question Response Flow Moderate [...] quadrivalent, preservative 9 completed Sara Vice null, [employer] 12/07/2024 16:57:55 COVID-19, mRNA, LNP-S, PF, 30 mcg/0.3 mL dose 1 completed Sara Vice null, [employer] 12/07/2024 16:57:55 COVID-19, mRNA, LNP-S, PF, 30 mcg/0.3 mL dose 1 completed Sara Vice null, [employer] 12/07/2024 16:57:55 COVID-19, mRNA, LNP-S, PF, 30 mcg/0.3 mL dose 1 completed Sara Vice null, [employer] 12/07/2024 16:57:55 Td (adult), 2 Lf tetanus toxoid, preservative free, adsorbed 9 completed Sara Vice null, [employer] 12/07/2024 16:57:55 Hep B, adolescent/high risk infant 8 completed Sara Vice null, [employer] 12/07/2024 16:57:55 Hep B, adolescent/high risk 8 completed Sara Vice null, [employer] 12/07/2024 16:57:55 Hep B, adolescent/high risk 8 completed Sara Vice null, [employer] 12/07/2024 16:57:55 Hep A, adult 9 completed Sara Vice null, [employer] 12/07/2024 16:57:55 Hep A, adult 8 completed Sara Vice null, [employer] 12/07/2024 16:57:55 Past Encounters Encounter ID Performer Location Encounter Start Date Encounter Closed Date Diagnosis/Indication Diagnosis SNOMED-CT Code Diagnosis ICD10 Code Diagnosis Note [id number] SAMIR Luu [facility] [address] [place] [address] 04/13/2025 09:22:52 04/13/2025 10:13:32 Acute maxillary sinusitis 96559165 J01.00 Rest, fluids. RTC if not improving. Health Concerns Section Related Observation LastModified by Organization Detai ls LastModified Time None Recorded Concern Status LastModified by Organization Details LastModified Time None Recorded Payers Encounter Date Sequence Insurance Name Policy Number Policy Lam Covered Member ID Lam Member ID Guarantor Name 04/13/2025 1 [facility] [id number] Lauro Chacko [id number] Francois Chacko Notes Date Note Type Note Provider Name and Address Organization Details Recorded Time 04/13/2025 text/html Sinus pain, pressure, congestion, green sputum for a week or so. OTC meds have not helped. No fever. SAMIR Luu [address] [place] [address], [address], [facility] [employer] 04/13/2025 10:55:18 OBGyn Episode No OBEpisode recorded.
== END 2025-05-06 23:59 | disposition home or self-care (01) ==
LOC: RAD 07:39
PROVIDERS: PCP Physician Assistant; Visit Provider Physician Assistant
DX: N63.21 Unspecified lump in the left breast, upper outer quadrant (principal); N63.42 Unspecified lump in left breast, subareolar
CPT/HCPCS: 76641